=== PATIENT | male | born 1965 | race Caucasian/White ===

== ENCOUNTER 2020-05-29 14:02 | Emergency (ER) | payer MEDICAID, SELFPAY ==
[2020-05-29 14:03] VITALS: BP 129/77; PULSE 77; RESP 16; TEMP 36.6; O2SAT 96; BMI 31.0
--- NOTE | 2020-05-29 14:11 | CT_ITS ---
PROCEDURE: CT ABDOMEN PELVIS WO CON CLINICAL INDICATION: Nephrolithiasis Hematuria COMPARISON: No exams were available for comparison TECHNIQUE: Axial images obtained with sagittal and coronal reformats. All CT scans at the facility use one or more dose reduction, viz: automated exposure control, ma/kV adjustment per patient size (including targeted exams where dose is matched to indication, i.e. head), or iterative reconstruction technique. FINDINGS: LOWER THORAX: Mild atelectatic change or scarring in the left lung base. Coronary artery calcifications. ABDOMEN & PELVIS: The liver, gallbladder, spleen, adrenal glands, and pancreas have an unremarkable unenhanced appearance. No renal or ureteral calculi. No hydronephrosis. There is mild prominence of the left adrenal gland but maintains an adrenal form shape. Moderate amount of retained colonic feces. No evidence of appendicitis, intestinal obstruction, free air, or diverticulitis. There is a small umbilical hernia containing fat. There are mild degenerative changes in the thoracic spine and lumbar spine. No acute bony findings. IMPRESSION: 1. No acute finding. 2. Moderate amount of retained colonic feces. 3. No renal or ureteral calculi. 4. Minimal prominence of the left adrenal gland nonspecific which may be due to hyperplasia or adenomatous involvement. Follow-up may confirm stability. This Dictated by: Deacon Salamanca MD 05/30/2020 07:42 Deacon Salamanca MD in [facility] 05/30/2020 07:42
--- NOTE | 2020-05-29 14:13 | HMH.EDGENADL ---
ED Disposition Clinical Impression: Nephrolithiasis Hematuria Qualifiers: Hematuria type: unspecified type Qualified Code(s): R31.9 - Hematuria, unspecified Disposition: Home, Self-Care Condition on Discharge: Fair Referrals: Thong Hinds MD [Primary Care Provider] - - Critical Care Critical Care Time: No Attestation: On 05/29/20, the high probability of a clinically significant, sudden or life threatening deterioration of the following system(s) required my full and direct attention, intervention and personal management. The time I documented below is in addition to time spent performing reported procedures but includes the following listed in this critical care notation. Medical Decision Making - Alden Inquiry Pt receiving controlled substance: No Vital Signs: 05/29/20 14:03 05/29/20 15:00 05/29/20 15:30 Temperature 97.9 F Temperature Source Oral Pulse Rate 62 65 Pulse Rate [Right Radial] 77 Respiratory Rate 16 Blood Pressure 114/77 109/68 L Blood Pressure [Right Arm] 129/77 Blood Pressure Mean 85 77 Blood Pressure Mean [Right Arm] 94 Blood Pressure Source [Right Arm] Automatic Cuff Blood Pressure Position [Right Arm] Sitting 02 Sat by Pulse Oximetry 96 95 93 L Oxygen Delivery Method Room Air - Lab Data Lab Results 05/29/20 14:23: WBC 5.2, RBC 5.53, Hgb 15.4, Hct 46.3, MCV 83.8, MCH 27.8, MCHC 33.2, RDW 14.1, Plt Count 209, MPV 8.5, Neut % (Auto) 56.2, Lymph % (Auto) 32.8, [place] % (Auto) 7.3, Eos % (Auto) 3.4, Baso % (Auto) 0.4, Neut # (Auto) 2.9, Lymph # (Auto) 1.7, [place] # (Auto) 0.4, Eos # (Auto) 0.2, Baso # (Auto) 0.0 05/29/20 14:23: Sodium 140, Potassium 4.2, Chloride 106, Carbon Dioxide 26, Anion Gap 12.2, BUN 16, Creatinine 0.90, Estimated Creat Clear 126, Estimated GFR 89, Est GFR ( Amer) 107, Glucose 103 H, Calcium 9.3, Total Bilirubin 0.2, AST 22, ALT 23, Alkaline Phosphatase 77, Total Protein 7.2, Albumin 4.6, Globulin 2.6, Albumin/Globulin Ratio 1.8 05/29/20 16:00: Urine Color Yellow, Urine Appearance Clear, Urine pH 6.0, Ur Specific [place] 1.020, Urine Protein Negative, Urine Glucose (UA) Negative, Urine Ketones Negative, Urine Blood Negative, Urine Nitrate Negative, Urine Bilirubin Negative, Urine Urobilinogen 0.2, Ur Leukocyte Esterase Negative, Urine RBC Occasional, Urine WBC None, Ur Squamous Epith Cells Occasional, Urine Bacteria None Result diagrams: 05/29/20 14:23 05/29/20 14:23 Orders (Tests/Meds): ED MEDICATIONS Discontinued Medications Generic Name Dose Route Start Last Admin Trade Name Freq PRN Reason Stop Dose Admin Sodium Chloride 1,000 mls @ 999 mls/hr 05/29/20 14:15 05/29/20 14:46 Sod Chlor 0.9% 1000ml Bag IV 05/29/20 15:15 999 mls/hr .Q1H1M KYM Administration Ketorolac Tromethamine 30 mg 05/29/20 14:12 05/29/20 14:45 Ketorolac 30mg/Ml Vial IV 05/29/20 14:13 30 mg ONCE ONE Administration ORDERS Category Date Time Status CT abdomen pelvis wo con Stat Cat Scan 05/29/20 14:11 Taken Medical Decision Narrative: Upon presentation, patient is hemodynamically stable and nontoxic-appearing. Patient presents with 1 day of hematuria. Differential diagnosis includes was not limited to nephrolithiasis, hemorrhagic cystitis, bladder cancer. Labs including CBC, CMP were obtained to evaluate for infection and creatinine function. UA was ordered along with a CT abdomen pelvis without contrast evaluation of UTI and nephrolithiasis. I reviewed patient's labs which were within normal limits. Patient's creatinine is normal, unlikely to have a significant obstruction. I reviewed patient's CT which did not demonstrate any signs of an acute retained kidney stone. CT and also stated that there was no signs of hydronephrosis, hydroureter, but did demonstrate some prominence of the left adrenal gland which will require follow-up. Additionally, there is some feces in the colon without signs of bowel thickening or bowel o
[2020-05-29 14:32] LABS: Basophils % 0.4 % (0.1-2.0); Eosinophils # 0.2 K/mm3 (0.0-0.4); Eosinophils % 3.4 % (0.1-12.0); Hematocrit 46.3 % (42.0-52.0); Hemoglobin 15.4 g/dL (14.1-18.0); Lymphocytes # 1.7 K/mm3 (0.7-4.5); Lymphocytes % 32.8 % (10-50); Mean Corpuscular HGB Conc 33.2 g/dL (31.8-35.4); Mean Corpuscular Hemoglobin 27.8 pg (27.0-31.2); Mean Corpuscular Volume 83.8 fl (80-94); Mean Platelet Volume 8.5 fl (7.4-10.4); Monocytes # 0.4 K/mm3 (0.1-1.0); Monocytes % 7.3 % (1.7-9.3); Neutrophils # 2.9 K/mm3 (1.8-7.8); Neutrophils % 56.2 % (37.0-80.0); Platelet Count 209 K/mm3 (142-424); Red Blood Count 5.53 M/mm3 (4.60-6.20); Red Cell Distribution Width 14.1 % (11.5-17.5); White Blood Count 5.2 K/mm3 (4.8-10.8)
--- NOTE | 2020-05-29 14:34 | PC.NURSE ---
Pt returned from rad.
[2020-05-29 14:39] LABS: Alanine Aminotransferase 23 U/L (12-78); Albumin Level 4.6 g/dl (3.5-5.0); Albumin/Globulin Ratio 1.8 (1.1-1.8); Alkaline Phosphatase 77 U/L (38-126); Anion Gap 12.2 mEq/L (5-15); Aspartate Amino Transferase 22 U/L (17-59); Bilirubin,Total 0.2 mg/dl (0.2-1.3); Blood Urea Nitrogen 16 mg/dl (9-20); Calcium 9.3 mg/dl (8.4-10.2); Carbon Dioxide 26 mmol/L (22.0-30.0); Chloride 106 mmol/L (98-107); Creatinine Clearance Estimated 126 mL/min (50-200); Estimated Glomerular Filt Rate 89 ml/min (>60); GFR (African American) 107 ML/MIN (>60); Globulin 2.6 g/dL (1.3-3.2); Glucose 103 mg/dl (74-100); Potassium 4.2 mmoL/L (3.5-5.1); Sodium 140 mmol/L (136-145); Total Protein,Serum 7.2 g/dl (6.3-8.2)
--- NOTE | 2020-05-29 14:52 | PC.NURSE ---
pt reports unable to void at this time
[2020-05-29 15:00] VITALS: BP 114/77; PULSE 62; O2SAT 95
[2020-05-29 15:30] VITALS: BP 109/68; PULSE 65; O2SAT 93
[2020-05-29 16:07] LABS: Appearance,Urine CLEAR (Clear); Bilirubin,Urine Negative (Negative); Blood, Urine Negative (Negative); Color,Urine YELLOW (Yellow); Glucose,Urine (UA) Negative (Negative); Ketones,Urine Negative (Negative); Leukocyte Esterase,Urine Negative (Negative); Microscopic, Urine URINE MICROSCOPIC (MICROSCOPIC); Nitrate,Urine Negative (Negative); Protein,Urine Negative (Negative); Urobilinogen,Urine 0.2 EU/dl (0.2)
--- NOTE | 2020-05-29 16:10 | PC.NURSE ---
pT HAS REMOVED HIS VS MONITORS AND KEEPS GOING BACK AND FORTH TO THE RESTROOM.
[2020-05-29 16:18] LABS: RBC,Urine Occasional #/hpf (0-3); Squamous Epithelial Cell,Urine Occasional #/hpf (0-5)
--- NOTE | 2020-05-29 16:38 | PC.NURSE ---
notified staff at the [facility] pt is ready for discharge.
[2020-05-29 17:23] VITALS: BP 134/76; PULSE 87; RESP 16; TEMP 36.7; O2SAT 99
== END 2020-05-29 17:20 | disposition home or self-care (01) ==
PROVIDERS: Emergency Provider Emergency Medicine; PCP Emergency Medicine
DX: N20.0 Calculus of kidney (principal); I25.10 Atherosclerotic heart disease of native coronary artery without angina pectoris; Z86.73 Personal history of transient ischemic attack (TIA), and cerebral infarction without residual deficits; I10 Essential (primary) hypertension; I25.2 Old myocardial infarction; N28.9 Disorder of kidney and ureter, unspecified; Z96.642 Presence of left artificial hip joint; F17.210 Nicotine dependence, cigarettes, uncomplicated; Z79.899 Other long term (current) drug therapy
CPT/HCPCS: 74176; 80053; 81001; 85025; 99282

== ENCOUNTER 2020-06-09 11:17 | Emergency (ER) | payer OTHER, SELFPAY ==
--- NOTE | 2020-06-09 11:14 | ECG_ITS ---
APPROVED REPORT Exam: Resting ECG HR:58 bpm ECG Measurements Heart Rate 58 AXES SD 148 P 36 QRSd 92 QRS 11 QT 434 T 41 QTc 426 Conclusion Sinus bradycardia Minimal voltage criteria for LVH, may be normal variant Septal infarct, age undetermined Abnormal ECG Electronically signed by : Osvaldo Joseph, 06/10/2020 15:09:03
[2020-06-09 11:18] VITALS: BP 156/92; PULSE 63; RESP 16; TEMP 36.6; O2SAT 98; BMI 31.6
--- NOTE | 2020-06-09 11:21 | CT_ITS ---
PROCEDURE: CT HEAD/BRAIN WO CON CLINICAL INDICATION: weakness COMPARISON: No exams were available for comparison TECHNIQUE: Axial images obtained. All CT scans at the facility use one or more dose reduction, viz: automated exposure control, ma/kV adjustment per patient size (including targeted exams where dose is matched to indication, i.e. head), or iterative reconstruction technique. FINDINGS: Encephalomalacia is noted in the right frontoparietal lobe, likely secondary to prior infarct. No acute intra or extra-axial hemorrhage, space occupying lesion or acute infarct is noted. Few scattered periventricular and subcortical white matter hypodensities, may represent microvascular changes. Atherosclerotic vascular calcification of the bilateral internal carotid arteries are noted. No midline shift, mass effect, intracranial hemorrhage, hydrocephalus, or extra-axial fluid collection is evident. The calvarium has an unremarkable appearance. Minor mucosal thickening of the ethmoidal sinuses. Rest of the visualized paranasal sinuses and mastoid air cells are clear. IMPRESSION: No acute intracranial process. 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 Microvascular changes and atherosclerotic disease. Dictated by: Ella Newman 06/09/2020 12:47 Ella Newman in [facility] 06/09/2020 12:47
--- NOTE | 2020-06-09 11:21 | XR_ITS ---
PROCEDURE: XR CHEST PORTABLE CLINICAL HISTORY: cough COMPARISON: No exams were available for comparison FINDINGS: The cardiomediastinal silhouette and pulmonary vascularity are within normal limits. Subsegmental atelectasis noted in the left mid and bilateral lower zones. No lobar consolidation, pleural effusions or pneumothorax. Degenerative changes of the visualized thoracic spine and bilateral shoulder joints. IMPRESSION: No acute cardiopulmonary process. Dictated by: Ella Newman 06/10/2020 08:13 Ella Newman in [facility] 06/10/2020 08:13
--- NOTE | 2020-06-09 11:32 | HMH.EDWEAK ---
ED Disposition Clinical Impression: Generalized weakness Disposition: Home, Self-Care Condition on Discharge: Good Instructions: DI for Muscle Weakness Referrals: PCP,No [Primary Care Provider] - Thong Hinds MD [Staff Physician] - - Critical Care Critical Care Time: No Attestation: On , the high probability of a clinically significant, sudden or life threatening deterioration of the following system(s) required my full and direct attention, intervention and personal management. The time I documented below is in addition to time spent performing reported procedures but includes the following listed in this critical care notation. Medical Decision Making - Medical Records Medical records reviewed: Yes: I reviewed the patient's medical records. - Alden Inquiry Pt receiving controlled substance: No Vital Signs: 06/09/20 11:18 06/09/20 13:31 Temperature 98 F Temperature Source Oral Pulse Rate 56 L Pulse Rate [Radial] 63 Respiratory Rate 16 15 Blood Pressure 129/76 Blood Pressure [Right Arm] 156/92 H Blood Pressure Mean 93 Blood Pressure Mean [Right Arm] 113 Blood Pressure Position [Right Arm] Sitting 02 Sat by Pulse Oximetry 98 98 Oxygen Delivery Method Room Air - Lab Data Lab Results 06/09/20 11:22: WBC 5.5, RBC 5.47, Hgb 14.9, Hct 47.4, MCV 86.7, MCH 27.3, MCHC 31.5 L, RDW 14.5, Plt Count 175, MPV 7.5, Neut % (Auto) 65.3, Lymph % (Auto) 23.2, [place] % (Auto) 7.1, Eos % (Auto) 3.6, Baso % (Auto) 0.8, Neut # (Auto) 3.6, Lymph # (Auto) 1.3, [place] # (Auto) 0.4, Eos # (Auto) 0.2, Baso # (Auto) 0.0 06/09/20 11:22: Sodium 140, Potassium 4.2, Chloride 108 H, Carbon Dioxide 29, Anion Gap 7.2, BUN 16, Creatinine 1.00, Estimated Creat Clear 115, Estimated GFR 78, Est GFR ( Amer) 95, Glucose 94, Calcium 9.3, Total Bilirubin 0.4, AST 23, ALT 24, Alkaline Phosphatase 72, Troponin I < 0.01, Total Protein 6.7, Albumin 4.4, Globulin 2.3, Albumin/Globulin Ratio 1.9 H, TSH 1.41 06/09/20 12:18: PT 11.2, INR 0.95, APTT 27.9 06/09/20 12:22: Urine Color Yellow, Urine Appearance Clear, Urine pH 7.0, Ur Specific [place] 1.015, Urine Protein Negative, Urine Glucose (UA) Negative, Urine Ketones Negative, Urine Blood Negative, Urine Nitrate Negative, Urine Bilirubin Negative, Urine Urobilinogen 0.2, Ur Leukocyte Esterase Negative, Urine RBC None, Urine WBC 3-5, Ur Squamous Epith Cells Occasional, Urine Bacteria None Result diagrams: 06/09/20 11:22 06/09/20 11:22 Orders (Tests/Meds): ORDERS Category Date Time Status XR chest portable Stat Exams 06/09/20 11:21 Taken Troponin I Q3H Lab 06/09/20 14:30 Ordered Troponin I Q3H Lab 06/09/20 17:30 Ordered - Radiology Data #1 Image(s): Chest Image Reviewed: Yes I reviewed the patient's radiology results, Yes I reviewed the patient's radiology image Preliminary Findings: Normal/NAD - CT Data CT Scan: Head Time Received: 13:[address] Reviewed: Yes: I have reviewed the patient's CT results, I have viewed the radiologist's interpretation Findings Narrative: IMPRESSION: No acute intracranial process. 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 Microvascular changes and atherosclerotic disease. - ECG Data Tracing #1 Bradycardic rate of 58 bpm, normal FL and QTc interval. Nonspecific ST changes. ECG initial impression date: 06/09/20 ECG initial impression time: 11:15 Arrhythmias present: sinus rudolph - Reevaluation(s) Time: 13:46 Reevaluation #1: On reevaluation, patient is feeling much better. Repeat neurologic exam does not show any change from baseline. His speech is clear and normal. Patient is to follow-up with PCP. Given strict return precautions. Verbalized understanding. Medical Decision Narrative: 54-year-old male presented to the emergency department with some weakness and slurred speech. The patient slurred speech appears to have resolved. He has no new focal weakness, j
[2020-06-09 11:38] LABS: Basophils % 0.8 % (0.1-2.0); Eosinophils # 0.2 K/mm3 (0.0-0.4); Eosinophils % 3.6 % (0.1-12.0); Hematocrit 47.4 % (42.0-52.0); Hemoglobin 14.9 g/dL (14.1-18.0); Lymphocytes # 1.3 K/mm3 (0.7-4.5); Lymphocytes % 23.2 % (10-50); Mean Corpuscular HGB Conc 31.5 g/dL (31.8-35.4); Mean Corpuscular Hemoglobin 27.3 pg (27.0-31.2); Mean Corpuscular Volume 86.7 fl (80-94); Mean Platelet Volume 7.5 fl (7.4-10.4); Monocytes # 0.4 K/mm3 (0.1-1.0); Monocytes % 7.1 % (1.7-9.3); Neutrophils # 3.6 K/mm3 (1.8-7.8); Neutrophils % 65.3 % (37.0-80.0); Platelet Count 175 K/mm3 (142-424); Red Blood Count 5.47 M/mm3 (4.60-6.20); Red Cell Distribution Width 14.5 % (11.5-17.5); White Blood Count 5.5 K/mm3 (4.8-10.8)
[2020-06-09 11:43] LABS: Chloride 108 mmol/L (98-107)
[2020-06-09 11:44] LABS: Potassium 4.2 mmoL/L (3.5-5.1); Sodium 140 mmol/L (136-145)
[2020-06-09 11:46] LABS: Alanine Aminotransferase 24 U/L (12-78); Alkaline Phosphatase 72 U/L (38-126); Aspartate Amino Transferase 23 U/L (17-59); Bilirubin,Total 0.4 mg/dl (0.2-1.3); Blood Urea Nitrogen 16 mg/dl (9-20); Creatinine Clearance Estimated 115 mL/min (50-200); Estimated Glomerular Filt Rate 78 ml/min (>60); GFR (African American) 95 ML/MIN (>60)
[2020-06-09 11:47] LABS: Albumin Level 4.4 g/dl (3.5-5.0); Albumin/Globulin Ratio 1.9 (1.1-1.8); Anion Gap 7.2 mEq/L (5-15); Calcium 9.3 mg/dl (8.4-10.2); Carbon Dioxide 29 mmol/L (22.0-30.0); Globulin 2.3 g/dL (1.3-3.2); Glucose 94 mg/dl (74-100); Total Protein,Serum 6.7 g/dl (6.3-8.2)
[2020-06-09 12:00] LABS: Troponin I < 0.01 ng/ml (0.00-0.034)
[2020-06-09 12:18] LABS: Thyroid Stimulating Hormone 1.41 uIU/mL (0.465-4.68)
[2020-06-09 12:31] LABS: Microscopic, Urine URINE MICROSCOPIC (MICROSCOPIC)
[2020-06-09 12:34] LABS: Appearance,Urine CLEAR (Clear); Bilirubin,Urine Negative (Negative); Blood, Urine Negative (Negative); Color,Urine YELLOW (Yellow); Glucose,Urine (UA) Negative (Negative); Ketones,Urine Negative (Negative); Leukocyte Esterase,Urine Negative (Negative); Nitrate,Urine Negative (Negative); Protein,Urine Negative (Negative); Specific Gravity, Urine 1.015 (1.005-1.030); Urobilinogen,Urine 0.2 EU/dl (0.2)
[2020-06-09 12:45] LABS: Squamous Epithelial Cell,Urine Occasional #/hpf (0-5)
[2020-06-09 12:53] LABS: Activated Partial Thrombo Time 27.9 seconds (22.8-30.6); INR 0.95 (0.9-1.1); Prothrombin Time 11.2 seconds (10.1-12.5)
[2020-06-09 13:31] VITALS: BP 129/76; PULSE 56; RESP 15; O2SAT 98
--- NOTE | 2020-06-09 13:49 | PC.NURSE ---
GAVE REPORT TO JORGE, NURSE AT [facility]. JORGE STATED, I WILL SEND SOMEONE TO COME GET HIM. WILL CONTINUE TO MONITOR PATIENT
--- NOTE | 2020-06-09 13:55 | PC.NURSE ---
PT UP AMBULATORY TO BATHROOM
[2020-06-09 14:19] VITALS: BP 156/71; PULSE 76; RESP 17; TEMP 36.7; O2SAT 98
== END 2020-06-09 14:17 | disposition home or self-care (01) ==
PROVIDERS: Emergency Provider Emergency Medicine
DX: R53.81 Other malaise (principal); Z86.73 Personal history of transient ischemic attack (TIA), and cerebral infarction without residual deficits; I10 Essential (primary) hypertension; I25.2 Old myocardial infarction; N28.9 Disorder of kidney and ureter, unspecified; Z79.899 Other long term (current) drug therapy
CPT/HCPCS: 70450; 71045; 80053; 81001; 84443; 84484; 85025; 85610; 85730; 93005; 99283

== ENCOUNTER 2020-08-17 18:07 | Inpatient (IN) | payer OTHER, SELFPAY ==
[2020-08-17] VITALS (12 sets, daily range): BP systolic 145–197; BP diastolic 94–123; PULSE 71–90; RESP 13–25; TEMP 36.6; O2SAT 94–100; BMI 30.4
--- NOTE | 2020-08-17 17:58 | ECG_ITS ---
APPROVED REPORT Exam: Resting ECG HR:77 bpm ECG Measurements Heart Rate 77 AXES UT 140 P 26 QRSd 98 QRS 22 QT 376 T 49 QTc 425 Conclusion Normal sinus rhythm Minimal voltage criteria for LVH, may be normal variant Nonspecific T wave abnormality Abnormal ECG Electronically signed by : Osvaldo Joseph, 08/20/2020 11:03:05
--- NOTE | 2020-08-17 18:22 | XR_ITS ---
PROCEDURE INFORMATION: Exam: XR Chest Exam date and time: 08/17/2020 6:22 PM Age: 55 years old Clinical indication: Other: Chest pain; Prior surgery; Surgery date: 6+ months; Surgery type: Cardiac stents placed. TECHNIQUE: Imaging protocol: XR of the chest. Views: 2 views. COMPARISON: CR XR CHEST PORTABLE 06/09/2020 11:34 AM FINDINGS: Airway: The airways are patent. Lungs: Low lung volumes causes crowding of the bronchovascular structures. No acute interstitial or airspace disease. Pleural spaces: There are no pleural effusions present. There is no evidence of pneumothorax. Heart/Mediastinum: The heart is mildly enlarged. Bones/joints: No acute skeletal abnormality or aggressive osseous lesion. IMPRESSION: Negative for acute thoracic pathology.
--- NOTE | 2020-08-17 18:42 | HMH.EDGENADL ---
ED Disposition Condition on Discharge: Good - Critical Care Critical Care Time: No <Eric Hamilton - Last Filed: 08/17/20 20:13> <Thong Hinds - Last Filed: 08/17/20 21:28> Clinical Impression: Non-STEMI (non-ST elevated myocardial infarction) Chest pain Qualifiers: Chest pain type: unspecified Qualified Code(s): R07.9 - Chest pain, unspecified Hypertension Qualifiers: Hypertension type: essential hypertension Qualified Code(s): I10 - Essential (primary) hypertension Disposition: Admitted As Inpatient Referrals: Provider,Referral, MD [Primary Care Provider] - Attestation: On 08/17/20, the high probability of a clinically significant, sudden or life threatening deterioration of the following system(s) required my full and direct attention, intervention and personal management. The time I documented below is in addition to time spent performing reported procedures but includes the following listed in this critical care notation. Medical Decision Making - Ald[place] Inquiry Pt receiving controlled substance: No - Lab Data Result diagrams: 08/17/20 19:50 08/17/20 19:50 <Eric Hamilton - Last Filed: 08/17/20 20:13> - Medical Records Medical records reviewed: Yes: I reviewed the patient's medical records. - Lab Data Lab results reviewed: Yes: I reviewed the patient's lab results. Result diagrams: 08/17/20 19:50 08/17/20 19:50 - Radiology Data #1 Image(s): Chest Image Reviewed: Yes I reviewed the patient's radiology image Preliminary Findings: Normal/NAD - CT Data CT Scan: Chest Time Received: 21:[address] Reviewed: Yes: I have viewed the radiologist's interpretation Preliminary Findings: Abnormal (no pul emboli) - ECG Data Tracing #2 Normal Sinus Rhythm: Yes Ischemic changes: non-specific ST-T wave changes ECG compared to prior tracings: there are no significant changes - Physician Consults Physician Consulted: yaa Reason -: Pt condition - RANDY Score for Non-Stemi Age of Patient: 50-59 years old Heart Rate: 70-89 bpm Systolic Blood Pressure: 160-199 mmHg Serum Creatinine: 0.80-1.19 mg/dl CHF [place] Class: I-No CHF Other Risk Factors: Elevated Cardiac Enzymes or Biomarkers Non-Stemi Risk Score: 81 <Thong Hinds - Last Filed: 08/17/20 21:28> Vital Signs: 08/17/20 18:07 08/17/20 19:51 08/17/20 19:58 Temperature 97.8 F Temperature Source Oral Pulse Rate 74 86 Pulse Rate [Left Radial] 80 Respiratory Rate 18 15 25 H Blood Pressure 174/106 H 182/117 H Blood Pressure [Right Arm] 176/102 H Blood Pressure Mean [Right Arm] 126 Blood Pressure Source [Right Arm] Automatic Cuff Blood Pressure Position [Right Arm] Sitting 02 Sat by Pulse Oximetry 100 97 98 Oxygen Delivery Method Room Air 08/17/20 20:53 08/17/20 21:05 Temperature Temperature Source Pulse Rate 76 71 Pulse Rate [Left Radial] Respiratory Rate 14 14 Blood Pressure 186/121 H 193/116 H Blood Pressure [Right Arm] Blood Pressure Mean [Right Arm] Blood Pressure Source [Right Arm] Blood Pressure Position [Right Arm] 02 Sat by Pulse Oximetry 97 99 Oxygen Delivery Method - Lab Data Lab Results 08/17/20 19:50: WBC 6.9, RBC 5.75, Hgb 16.5, Hct 49.3, MCV 85.8, MCH 28.7, MCHC 33.4, RDW 13.9, Plt Count 206, MPV 7.5, Neut % (Auto) 61.0, Lymph % (Auto) 27.6, [place] % (Auto) 6.5, Eos % (Auto) 4.5, Baso % (Auto) 0.5, Neut # (Auto) 4.2, Lymph # (Auto) 1.9, [place] # (Auto) 0.4, Eos # (Auto) 0.3, Baso # (Auto) 0.0 08/17/20 19:50: Troponin I 2.76 H 08/17/20 19:50: Sodium 140, Potassium 4.1, Chloride 104, Carbon Dioxide 29, Anion Gap 11.1, BUN 17, Creatinine 1.00, Estimated Creat Clear 110, Estimated GFR 78, Est GFR ( Amer) 95, Glucose 93, Calcium 9.0 Orders (Tests/Meds): ED MEDICATIONS Discontinued Medications Generic Name Dose Route Start Last Admin Trade Name Freq PRN Reason Stop Dose Admin Aspirin 324 mg 08/17/20 20:40 08/17/20 20:41 Aspiri
--- NOTE | 2020-08-17 18:59 | CT_ITS ---
PROCEDURE INFORMATION: Exam: CTA Chest With Contrast Exam date and time: 08/17/2020 6:59 PM Age: 55 years old Clinical indication: Right-sided; Prior surgery; Surgery date: 6+ months; Surgery type: Multiple cardiac stents. ; Patient HX: Right sided chest pain for 2 days, cardiac stents, current smoker. ; Additional info: Pleuritic chest pain TECHNIQUE: Imaging protocol: Computed tomographic angiography of the chest with contrast. 3D rendering (Not supervised by radiologist): MIP and/or 3D reconstructed images were created by the technologist. Radiation optimization: All CT scans at this facility use at least one of these dose optimization techniques: automated exposure control; mA and/or kV adjustment per patient size (includes targeted exams where dose is matched to clinical indication); or iterative reconstruction. Contrast material: ISOVUE 370; Contrast volume: 70 ml; Contrast route: INTRAVENOUS (IV); COMPARISON: CR XR CHEST 2V 08/17/2020 6:22 PM FINDINGS: Pulmonary arteries: Bolus timing is insufficient for definitive exclusion of small peripheral pulmonary emboli. No large pulmonary emboli noted within the main pulmonary arteries or proximal segmental branches. Distal segmental branches are not confidently evaluated due to suboptimal contrast bolus. Aorta: The aorta is normal. There is a bovine aortic arch, with a common origin of the left common carotid and brachiocephalic arteries. Lungs: There is subpleural atelectasis of the dependent portions of the lungs. Focal paraseptal emphysema noted in the left upper lobe. Linear scarring in the left lower lobe. Pleural spaces: Unremarkable. No pneumothorax. No pleural effusion. Heart: There is mild atherosclerotic calcification of the coronary arteries. Coronary artery stents are appreciated. The heart is mildly enlarged. No pericardial thickening or effusion. Mediastinal space: A small hiatal hernia is present. Lymph nodes: Unremarkable. No enlarged lymph nodes. Bones/joints: Multilevel old/healed anterior right rib fractures. Multilevel old/healed left rib fractures are likewise appreciated. No acute skeletal pathology. Moderate multilevel degenerative changes of the spine, as manifested by multilevel anterior osteophytes and multilevel decrease in intervertebral disc space. Soft tissues: Unremarkable. Other findings: The visualized intra-abdominal structures demonstrate no acute findings. IMPRESSION: 1. No large pulmonary emboli noted within the main pulmonary arteries or proximal segmental branches. Distal segmental branches are not confidently evaluated due to suboptimal contrast bolus. 2. No other acute thoracic pathology is otherwise appreciated. 3. Incidental findings as detailed above.
--- NOTE | 2020-08-17 19:10 | PC.NURSE ---
PT needs a CTA, current IV in placed in the hand, radiology needs it ac and above, another nurse is attempting to obtain this. Will contact radiology when this is completed
--- NOTE | 2020-08-17 19:51 | PC.NURSE ---
Iv obtained at this time by this RN in right AC 20g. Blood obtained and sent to lab
[2020-08-17 19:59] LABS: Basophils % 0.5 % (0.1-2.0); Eosinophils # 0.3 K/mm3 (0.0-0.4); Eosinophils % 4.5 % (0.1-12.0); Hematocrit 49.3 % (42.0-52.0); Hemoglobin 16.5 g/dL (14.1-18.0); Lymphocytes # 1.9 K/mm3 (0.7-4.5); Lymphocytes % 27.6 % (10-50); Mean Corpuscular HGB Conc 33.4 g/dL (31.8-35.4); Mean Corpuscular Hemoglobin 28.7 pg (27.0-31.2); Mean Corpuscular Volume 85.8 fl (80-94); Mean Platelet Volume 7.5 fl (7.4-10.4); Monocytes # 0.4 K/mm3 (0.1-1.0); Monocytes % 6.5 % (1.7-9.3); Neutrophils # 4.2 K/mm3 (1.8-7.8); Platelet Count 206 K/mm3 (142-424); Red Blood Count 5.75 M/mm3 (4.60-6.20); Red Cell Distribution Width 13.9 % (11.5-17.5); White Blood Count 6.9 K/mm3 (4.8-10.8)
[2020-08-17 20:06] LABS: Anion Gap 11.1 mEq/L (5-15); Blood Urea Nitrogen 17 mg/dl (9-20); Carbon Dioxide 29 mmol/L (22.0-30.0); Chloride 104 mmol/L (98-107); Creatinine Clearance Estimated 110 mL/min (50-200); Estimated Glomerular Filt Rate 78 ml/min (>60); GFR (African American) 95 ML/MIN (>60); Glucose 93 mg/dl (74-100); Potassium 4.1 mmoL/L (3.5-5.1); Sodium 140 mmol/L (136-145)
--- NOTE | 2020-08-17 20:21 | PC.NURSE ---
pt going to CT
[2020-08-17 20:30] LABS: Troponin I 2.76 ng/ml (0.00-0.034)
--- NOTE | 2020-08-17 20:38 | PC.NURSE ---
notified md grey critical trop
--- NOTE | 2020-08-17 20:38 | PC.NURSE ---
pt returned from ct
--- NOTE | 2020-08-17 20:52 | ECG_ITS ---
APPROVED REPORT Exam: Resting ECG HR:74 bpm ECG Measurements Heart Rate 74 AXES LA 146 P 53 QRSd 106 QRS 11 QT 394 T 85 QTc 437 Conclusion Normal sinus rhythm Left ventricular hypertrophy with repolarization abnormality Abnormal ECG Electronically signed by : Osvaldo Joseph, 08/20/2020 11:02:08
--- NOTE | 2020-08-17 21:18 | PC.NURSE ---
Lizet speaking with Lucy at this time.
--- NOTE | 2020-08-17 21:24 | PC.NURSE ---
Per Dr. Ayala, pt is OK to have breakfast in am, then be NPO
--- NOTE | 2020-08-17 21:36 | PC.NURSE ---
Pt assisted to the BR
[2020-08-17 22:34] LABS: Troponin I 3.65 ng/ml (0.00-0.034)
--- NOTE | 2020-08-17 22:34 | PC.NURSE ---
Trop reported to MD at this time of 3.65. No new orders
[2020-08-18] VITALS (30 sets, daily range): BP systolic 138–200; BP diastolic 72–140; PULSE 74–100; RESP 16–22; TEMP 36.5–36.9; O2SAT 94–99; BMI 35.3
--- NOTE | 2020-08-18 | IR_ITS ---
APPROVED REPORT Patient Location: Inpatient [employer] Operator: DEAN Reaves RT (R) PROCEDURES Left heart catheterization Left ventriculogram Selective coronary angiogram Drug-eluting stent deployment to the proximal and mid LAD in a contiguous manner Drug-eluting stent deployment to the proximal and mid circumflex artery in a contiguous manner Drug-eluting stent deployment to the ramus intermedius INDICATION Acute non-ST elevation myocardial infarction, Coronary artery disease Informed consent was obtained prior to the procedure. COMPLICATIONS None Estimated Blood Loss: less than 10ml TECHNIQUE One percent lidocaine used to anesthetize the right anterior aspect of the wrist. The right radial artery was accessed via the Seldinger technique. A 6 Cam[place]onian sheath was placed in the right radial artery. 2.5 mg of verapamil, 800 mcg of nitroglycerin, 1mg Lidocaine and 5000 U Heparin were given through the arterial sheath. The [place] catheter was used to perform left heart catheterization left ventriculogram and selective coronary angiogram. A JL 3 6 [place]onian guide catheter was placed in the left main artery after therapeutic heparin was administered giving a therapeutic ACT. Choice PT extra-support wire was placed into the LAD and a 3.5 x 38 mm resolute [place] stent was deployed in the proximal to mid LAD at 24 kvng. Excellent angiographic results were obtained. Following this a 4 mm x 20 mm balloon was deployed at 20 kvng to post dilate the proximal to midportion of the stent. After achieving excellent angiographic results there was attempt to revascularize the circumflex artery however the catheter had to be exchanged for an EBU 3.75 guide catheter to provide better support. A Choice PT wire was placed distally and a 2.5 mm balloon was used to predilate the stenosis. Following this a 3.5 x 38 mm resolute [place] stent was deployed at 14 kvng reducing the critical stenosis to 0%. A 4 mm x 15 mm balloon was then placed in the proximal portion of the stent deployed at 20 kvng to post dilate. The wire was pulled back and placed into the ramus intermedius where a 2.5 mm x 15 mm resolute [place] stent was deployed at 20 kvng to reduce this critical stenosis. After achieving ROSY-3 flow down the LAD circumflex artery and ramus intermedius there was subtotal occlusion of a large septal training specialist. Multiple wires and attempts were made to try to cannulate and open the subtotal occluded septal training specialist however despite prolonged and numerous attempts the wire would not traverse the occlusion. ROSY II flow was present in the circumflex artery at the beginning of the procedure with ROSY-3 flow at the end of the procedure. ROSY II flow was present down the LAD at the beginning of the procedure and ROSY-3 flow at the end of the procedure. After achieving excellent angiographic results the apparatus was removed the sheath was removed good hemostasis was achieved using TR banding patient was transferred to the postop holding area in stable condition ANGIOGRAPHIC RESULTS The left main artery Normal The left anterior descending artery Has proximal 90% stenosis with a long tubular 70 to 80% stenosis The circumflex artery Circumflex artery is nondominant yet still a large vessel and has proximal 80 to 90% stenosis with greater than 90% stenosis in a large obtuse marginal artery. A large ramus intermedius has proximal 90% stenosis The right coronary artery Is a large dominant vessel and has proximal 20% mid vessel 30 to 40% stenosis with 30 and 40% stenoses throughout a large posterior descending artery and posterior lateral branch. The CARDOSO ventriculogram reveals Preserved at 60% The left ventricular end-diastolic pressure 15 to
--- NOTE | 2020-08-18 01:02 | PC.NURSE ---
pt arrived to floor via w/c from ed w/staff at 0100
--- NOTE | 2020-08-18 01:05 | PC.NURSE ---
pt unable to verify medications and when they were last taken at this time
[2020-08-18 01:20] LABS: Troponin I 4.92 ng/ml (0.00-0.034)
--- NOTE | 2020-08-18 05:59 | PC.NURSE ---
pt is AxOx4 and pleasant, complained of headache one time this shift and was treated per MAY, systolic BP 154-165, NSR on telemetry strips, remains on room air, voiding without difficulty
[2020-08-18 07:10] LABS: Chloride 107 mmol/L (98-107); Potassium 4.5 mmoL/L (3.5-5.1); Sodium 137 mmol/L (136-145)
[2020-08-18 07:13] LABS: Anion Gap 11.5 mEq/L (5-15); Blood Urea Nitrogen 16 mg/dl (9-20); Calcium 8.8 mg/dl (8.4-10.2); Carbon Dioxide 23 mmol/L (22.0-30.0); Cholesterol 164 mg/dl (140-200); Creatinine Clearance Estimated 142 mL/min (50-200); Estimated Glomerular Filt Rate 88 ml/min (>60); GFR (African American) 107 ML/MIN (>60); Glucose 75 mg/dl (74-100); Triglycerides 350 mg/dl (30-150); VLDL Cholesterol 70 mg/dL (0-40)
[2020-08-18 07:14] LABS: Chol/HDL Ratio 3.6 (1-3.5); HDL Cholesterol 46 mg/dl (40-60); Magnesium 1.7 mg/dl (1.6-2.3)
[2020-08-18 07:38] LABS: Direct LDL Cholesterol < 30.00 mg/dL (100-129)
--- NOTE | 2020-08-18 07:42 | P.CONPHA_ITS ---
[facility] Pharmacy VTE Monitoring - Patient Demographics Admission date: 08/18/20 Report Date: 08/18/20 Time: 07:42 Allergies/Adverse Reactions: Patient Allergies trazodone Allergy (Verified 08/18/20 01:03) Height: 1.73 m Weight: 105.829 kg Patient Problems: Current Active Problems Chest pain (Acute) Non-STEMI (non-ST elevated myocardial infarction) (Acute) Hypertension (Acute) - VTE Risk Labs: VTE Related Lab Results Hgb 16.5 g/dL (14.1-18.0) 08/17/20 19:50 Hct 49.3 % (42.0-52.0) 08/17/20 19:50 Plt Count 206 K/mm3 (142-424) 08/17/20 19:50 BUN 16 mg/dl (9-20) 08/18/20 06:20 Creatinine 0.90 mg/dl (0.66-1.25) 08/18/20 06:20 Estimated Creat Clear 142 mL/min (50-200) 08/18/20 06:20 Was VTE Risk Assessment Performed: Yes VTE Score: 1 VTE Risk Level: Very Low Risk Clinical Trial Participant: No - Prophylaxis VTE Prophylaxis Ordered?: Yes Types of VTE Prophylaxis: TEDS Knee High
[2020-08-18 08:26] LABS: Basophils % 0.2 % (0.1-2.0); Eosinophils # 0.2 K/mm3 (0.0-0.4); Eosinophils % 1.9 % (0.1-12.0); Hematocrit 45.8 % (42.0-52.0); Hemoglobin 15.5 g/dL (14.1-18.0); Lymphocytes # 1.2 K/mm3 (0.7-4.5); Lymphocytes % 12.4 % (10-50); Mean Corpuscular HGB Conc 33.8 g/dL (31.8-35.4); Mean Corpuscular Hemoglobin 28.6 pg (27.0-31.2); Mean Corpuscular Volume 84.8 fl (80-94); Mean Platelet Volume 7.8 fl (7.4-10.4); Monocytes # 0.5 K/mm3 (0.1-1.0); Monocytes % 5.8 % (1.7-9.3); Neutrophils # 7.4 K/mm3 (1.8-7.8); Neutrophils % 79.7 % (37.0-80.0); Platelet Count 198 K/mm3 (142-424); Red Cell Distribution Width 13.9 % (11.5-17.5); White Blood Count 9.3 K/mm3 (4.8-10.8)
--- NOTE | 2020-08-18 08:50 | HMH.CNCARD ---
History of Present Illness Consult date: 08/18/20 Requesting physician: Thong Hinds Consult reason: chest pain Chief complaint: chest pain History of present illness: This is a 55-year-old white gentleman who was admitted to the hospital with chest pain. The patient was found to have a non-ST elevation myocardial infarction. His T-max is 4.92. The patient states that he started having chest pain approximately 2 days ago. He states that this is a tight, pressure and sharp sensation in the substernal aspect of his chest. He states that it is radiating to his back, neck and right arm. The patient states that this has just progressively worsened over the last 2 days. At its worst it is an 8 out of 10 in intensity. It is worse with exertion and nothing is really helping to improve the chest pain. He states that this is associated with shortness of breath, nausea and diaphoresis. He states episodes can last for several hours before they resolve but then they just recur. He states that he does not feel well right now and he is very diaphoretic and having lots of chest tightness and shortness of breath while in the room speaking to him. He denies any fever, chills, vomiting, diarrhea, PND or orthopnea. He does report having history of coronary artery disease with stents placed a few years ago. [facility] History I have reviewed the patient's past medical history: Yes Medical History: Reports:: Atherosclerotic Heart Disease, Coronary Artery Disease, Cerebrovascular Accident (residual left sided weakness), Hyperlipidemia, Hypertension, Myocardial Infarction, Renal Disease, Renal Insufficiency *Have you ever received a pneumonia vaccine?: Yes *Have you received a flu vaccine this season?: Yes Laterality Cases: Left: Total Knee Replacement, Partial Knee Replacement Other Surgeries: Yes: Cardiac Catheterization, Coronary Stent (x4 or x5) - *Social History Last grade of school completed: High school graduate Smoking Status: Current every day smoker Tobacco Type: cigarettes # Packs/Day (cigarettes): 1 Alcohol Intake: never *Occupational Status:: disabled Housing: assisted living facility *Travel in the last 8 weeks: None Family Hx:: Cancer, Coronary Artery Disease, Diabetes, Heart Attack, Hypertension, Kidney Disease, Thyroid Disorder Meds Home Medications Medication Instructions Recorded Confirmed Type ARIPiprazole [Abilify] 5 mg PO DAILY 06/09/20 08/18/20 History Atorvastatin Calcium [Lipitor 80mg 80 mg PO HS 06/09/20 08/18/20 History Tablet*] Dicyclomine HCl 20 mg PO TID 06/09/20 08/18/20 History Duloxetine HCl [Cymbalta] 30 mg PO BID 06/09/20 08/18/20 History Famotidine [Acid Controller] 20 mg PO BID 06/09/20 08/18/20 History Hydralazine HCl [Hydralazine HCl 100 mg PO TID 06/09/20 08/18/20 History 25mg Tablet] Losartan Potassium [Cozaar 100mg 100 mg PO DAILY 06/09/20 08/18/20 History Tablets] Melatonin 5 mg PO HS 06/09/20 08/18/20 History Montelukast Sodium 10 mg PO HS 06/09/20 08/18/20 History Ropinirole HCl 4 mg PO HS 06/09/20 08/18/20 History Tamsulosin HCl 0.4 mg PO DAILY 06/09/20 08/18/20 History Tiotropium [place] [Spiriva 18 mcg IH DAILY 06/09/20 08/18/20 History Respimat] Tizanidine HCl [Tizanidine HCl 2 mg PO BID 06/09/20 08/18/20 History 2mg] carBAMazepine [Carbamazepine ER] 200 mg PO BID 06/09/20 08/18/20 History carvediloL [Carvedilol 25mg Tab] 12.5 mg PO BID 06/09/20 08/18/20 History polyethylene glycoL 3350 [Miralax 17 gm PO DAILY 06/09/20 08/18/20 History Powder] oxycodone-acetaminophen 5 mg-325 1 tab PO Q4H PRN #120 tab 07/28/20 08/18/20 Rx mg tablet Aspirin [Aspirin 81mg chewable 81 mg PO DAILY 08/18/20 08/18/20 History tab] Ergocalciferol (Vitamin D2) 50,000 unit PO WEEKLY 08/18/20 08/18/20 History [Vitamin D2] Gabapentin [Gabapentin 400mg Cap] 400 mg PO QID 08/18/20 08/18/20 History Lactobacillus Acidophilus/Pect 1 each PO BID 08/18/20 08/18/20 History [Acidophilus-Pectin Tab Chew]
--- NOTE | 2020-08-18 09:22 | HMH.HP ---
*Admission Date: 08/18/20 *Chief complaint: chest pain *History of present illness: 55-year-old male who states that he has had chest pain for 2 days that goes into his back. Patient states that he started having chest pain approximately 2 days ago. Patient states that this is a tight, pressure and sharp sensation in the substernal aspect of his chest. He states that it is radiating to his back, neck and right arm. The patient states that this has just progressively worsened over the last 2 days this is associated with shortness of breath, nausea and diaphoresis. He states episodes can last for several hours before they resolve but then they just recur. He states he is having chest pain that is radiating into his back. He does report having history of coronary artery disease with stents placed a few years ago. Patient states he is a smoker 1 03/12 ppd. Patient admitted for cardiac work up and cardiology consult. [facility] History I have reviewed the patient's past medical history: Yes Medical History: Reports:: Atherosclerotic Heart Disease, Coronary Artery Disease, Cerebrovascular Accident (residual left sided weakness), Hyperlipidemia, Hypertension, Myocardial Infarction, Renal Disease, Renal Insufficiency *Have you ever received a pneumonia vaccine?: Yes *Have you received a flu vaccine this season?: Yes Laterality Cases: Left: Total Knee Replacement, Partial Knee Replacement Other Surgeries: Yes: Cardiac Catheterization, Coronary Stent (x4 or x5) - *Social History Last grade of school completed: High school graduate Smoking Status: Current every day smoker Tobacco Type: cigarettes # Packs/Day (cigarettes): 1 Alcohol Intake: never *Occupational Status:: disabled Housing: assisted living facility *Travel in the last 8 weeks: None Family Hx:: Cancer, Coronary Artery Disease, Diabetes, Heart Attack, Hypertension, Kidney Disease, Thyroid Disorder Review of Systems - Review of Systems Review of systems:: pertinent systems reviewed and negative unless documented below - Constitutional Denies body ache(s), Denies fatigue, Denies lack of energy - Eyes Denies blurry vision - ENT Denies bleeding gums, Denies nasal discharge - *Cardiovascular Reports chest pain, Reports chest pain at rest, Reports chest pain with activity, Reports shortness of breath, Reports shortness of breath with activity - *Respiratory Denies change in phlegm color - *Gastrointestinal Reports nausea, Denies abdominal pain, Denies vomiting - *Genitourinary Denies urinary frequency - *Musculoskeletal Denies joint pain - Integumentary/Breasts Denies rash - *Neurologic Denies dizziness - Psychiatric Denies lack of enjoyment - Endocrine Denies flushing - Hematologic/Lymphatic Denies enlarged lymph nodes - Allergic/Immunologic Denies lip swelling Meds Home Medications Medication Instructions Recorded Confirmed Type ARIPiprazole [Abilify] 5 mg PO DAILY 06/09/20 08/18/20 History Atorvastatin Calcium [Lipitor 80mg 80 mg PO HS 06/09/20 08/18/20 History Tablet*] Dicyclomine HCl 20 mg PO TID 06/09/20 08/18/20 History Duloxetine HCl [Cymbalta] 30 mg PO BID 06/09/20 08/18/20 History Famotidine [Acid Controller] 20 mg PO BID 06/09/20 08/18/20 History Hydralazine HCl [Hydralazine HCl 100 mg PO TID 06/09/20 08/18/20 History 25mg Tablet] Losartan Potassium [Cozaar 100mg 100 mg PO DAILY 06/09/20 08/18/20 History Tablets] Melatonin 5 mg PO HS 06/09/20 08/18/20 History Montelukast Sodium 10 mg PO HS 06/09/20 08/18/20 History Ropinirole HCl 4 mg PO HS 06/09/20 08/18/20 History Tamsulosin HCl 0.4 mg PO DAILY 06/09/20 08/18/20 History Tiotropium [place] [Spiriva 18 mcg IH DAILY 06/09/20 08/18/20 History Respimat] Tizanidine HCl [Tizanidine HCl 2 mg PO BID 06/09/20 08/18/20 History 2mg] carBAMazepine [Carbamazepine ER] 200 mg PO BID 06/09/20 08/18/20 History carvediloL [Carvedilol 25mg Tab] 12.5 mg PO BID 06/09/20 08/18/20 History poly
--- NOTE | 2020-08-18 13:15 | HMH.PHAINT ---
verified home medication list using assisted MAR
[2020-08-18 16:10] LABS: CATHL Activated Clotting Time > 400 SEC (74-125)
[2020-08-18 16:10] LABS: CATHL Activated Clotting Time > 400 SEC (74-125)
--- NOTE | 2020-08-18 17:46 | PC.NURSE ---
Pt has been pleasant and cooperative this shift. A&O X4. Pt is post heart-catheterization and has had several complaints of pain. Morphine has been given per MAR with favorable results. Pt is on room air with sats. >90%. Lungs CTA. 1+ pitting edema noted to BLE. RT wrist cath dressing is C/D/I. Telemetry reveals NSR. Pt ambulates with stand-by assistance and the use of a cane. Pt has sat up in the recliner for a few hours today. Pt uses the urinal to void clear, yellow urine without issue. No BM. 20 G peripheral IV in the RT forearm is patent and SL. B/P elevated for most of the shift, MD aware. Other VSS. Call light within reach. Will continue to monitor.
[2020-08-19] VITALS: BP 144/83; PULSE 80; PULSE 88; RESP 18; TEMP 37; O2SAT 96
[2020-08-19 03:20] VITALS: BP 141/82; PULSE 82; RESP 18; TEMP 36.9; O2SAT 94
[2020-08-19 04:00] VITALS: PULSE 65
[2020-08-19 05:00] VITALS: BMI 35.3
--- NOTE | 2020-08-19 05:38 | PC.NURSE ---
Pt has slept at intervals this shift. Has c/o discomfort to back, neck and legs. Denies any CP. Pain medication requested often this shift. DSG to (R) radial cath site is C/D/I. No drainage noted. VSS. Medications administered per may. No other concerns at this time. Will continue to monitor.
[2020-08-19 07:08] LABS: Chloride 103 mmol/L (98-107); Potassium 3.7 mmoL/L (3.5-5.1); Sodium 137 mmol/L (136-145)
[2020-08-19 07:11] LABS: Anion Gap 9.7 mEq/L (5-15); Blood Urea Nitrogen 16 mg/dl (9-20); Carbon Dioxide 28 mmol/L (22.0-30.0); Creatinine Clearance Estimated 142 mL/min (50-200); Estimated Glomerular Filt Rate 88 ml/min (>60); GFR (African American) 107 ML/MIN (>60)
[2020-08-19 07:11] LABS: Basophils % 0.2 % (0.1-2.0); Eosinophils # 0.1 K/mm3 (0.0-0.4); Eosinophils % 1.3 % (0.1-12.0); Hematocrit 44.3 % (42.0-52.0); Hemoglobin 14.7 g/dL (14.1-18.0); Lymphocytes # 1.5 K/mm3 (0.7-4.5); Lymphocytes % 16.3 % (10-50); Mean Corpuscular HGB Conc 33.1 g/dL (31.8-35.4); Mean Corpuscular Hemoglobin 28.7 pg (27.0-31.2); Mean Corpuscular Volume 86.7 fl (80-94); Mean Platelet Volume 7.4 fl (7.4-10.4); Monocytes # 0.7 K/mm3 (0.1-1.0); Monocytes % 7.3 % (1.7-9.3); Neutrophils % 74.9 % (37.0-80.0); Platelet Count 175 K/mm3 (142-424); Red Cell Distribution Width 13.9 % (11.5-17.5); White Blood Count 9.3 K/mm3 (4.8-10.8)
[2020-08-19 07:12] LABS: Glucose 113 mg/dl (74-100)
[2020-08-19 08:00] VITALS: BP 158/96; PULSE 74; PULSE 80; RESP 18; TEMP 36.7; O2SAT 96
--- NOTE | 2020-08-19 08:38 | HMH.PNCARD ---
Subjective Date: 08/19/20 Time: 08:38 Principal diagnosis: Angina pectoris, non-ST elevation TX Interval history: 55-year-old white male in bedside chair in no acute distress but is noted to be diaphoretic. Patient states he has not had any of his chronic pain medicine yesterday and is having lots of back and knee pain. His chest pain has completely resolved after left heart catheterization with three-vessel stenting yesterday. Results noted below ANGIOGRAPHIC RESULTS The left main artery Normal The left anterior descending artery Has proximal 90% stenosis with a long tubular 70 to 80% stenosis The circumflex artery Circumflex artery is nondominant yet still a large vessel and has proximal 80 to 90% stenosis with greater than 90% stenosis in a large obtuse marginal artery. A large ramus intermedius has proximal 90% stenosis The right coronary artery Is a large dominant vessel and has proximal 20% mid vessel 30 to 40% stenosis with 30 and 40% stenoses throughout a large posterior descending artery and posterior lateral branch. The CARDOSO ventriculogram reveals Preserved at 60% The left ventricular end-diastolic pressure 15 to 20 mmHg IMPRESSION Critical three-vessel coronary disease as described above Preserved ejection fraction Borderline elevated LVEDP Successful stenting of the proximal to mid LAD severe to critical disease reduced to 0% with 1 drug-eluting stent Successful stenting of the proximal to mid circumflex artery critical disease reduced to 0% with 1 drug-eluting stent Successful stenting of the proximal ramus intermedius critical disease reduced to 0% with 1 drug-eluting stent PLAN 1. Plavix 75 mg daily plus aspirin 81 mg daily 2. Better control of hypertension 3. High dose of carvedilol and SHARDA inhibitors prior to discharge home 4. Avoidance of tobacco products 5. Risk factor modification 6. Cardiac rehabilitation Electronically signed by : Scott Ayala, 08/18/2020 12:11:25 Exam Vital signs and Labs for Last 24 Hours: Temp Pulse Resp BP Pulse Ox 98.1 F 74 18 158/96 H 96 08/19/20 08:00 08/19/20 08:00 08/19/20 08:00 08/19/20 08:00 08/19/20 08:00 Laboratory Results - last 24 hr 08/18/20 10:00: Activated Clotting Time > 400 H* 08/18/20 11:05: Activated Clotting Time > 400 H* 08/19/20 06:24: WBC 9.3, RBC 5.10, Hgb 14.7, Hct 44.3, MCV 86.7, MCH 28.7, MCHC 33.1, RDW 13.9, Plt Count 175, MPV 7.4, Neut % (Auto) 74.9, Lymph % (Auto) 16.3, Walton % (Auto) 7.3, Eos % (Auto) 1.3, Baso % (Auto) 0.2, Neut # (Auto) 7.0, Lymph # (Auto) 1.5, Walton # (Auto) 0.7, Eos # (Auto) 0.1, Baso # (Auto) 0.0 08/19/20 06:26: Sodium 137, Potassium 3.7, Chloride 103, Carbon Dioxide 28 D, Anion Gap 9.7, BUN 16, Creatinine 0.90, Estimated Creat Clear 142, Estimated GFR 88, Est GFR ( Amer) 107, Glucose 113 H, Calcium 9.0 I & O for Last 24 hours: Intake & Output 08/16/20 08/17/20 08/18/20 08/19/20 11:59 11:59 11:59 11:59 Intake Total 0 / 0 960 / 960 Output Total 200 / 200 1300 / 1300 Balance -200 / -200 -340 / -340 Weight 233 lb 5.008 oz 233 lb 5.008 oz - Constitutional no acute distress - *Routine HEENT Exam Head: Present: normocephalic Eye: Present: EOMI, PERRL ENT: Present: mucous membranes moist - *Routine Neck Exam Present: supple. Absent: lymphadenopathy - *Routine Respiratory Exam Present: CTA bilaterally - *Routine Cardiovascular Exam Present: RRR - *Routine Abdominal Exam Present: soft, normoactive bowel sounds. Absent: tenderness - *Routine Extremities Exam Absent: cyanosis, clubbing, edema - *Routine Skin Exam Present: warm. Absent: rash - *Routine Neurological Exam Present: alert, oriented X3 Progress Note: A&P (1) Non-STEMI (non-ST elevated myocardial infarction) Status: Acute (2) Unstable angina Status: Acute (3) Coronary artery disease Status: Chronic (4) History of coronary artery stent placement Status: Chronic (5) Hyperli
--- NOTE | 2020-08-19 08:57 | HMH.DCSUM ---
General - General Admission date:: 08/18/20 Discharge date: 08/19/20 HPI HPI: 55-year-old male who states that he has had chest pain for 2 days that goes into his back. Patient states that he started having chest pain approximately 2 days ago. Patient states that this is a tight, pressure and sharp sensation in the substernal aspect of his chest. He states that it is radiating to his back, neck and right arm. The patient states that this has just progressively worsened over the last 2 days this is associated with shortness of breath, nausea and diaphoresis. He states episodes can last for several hours before they resolve but then they just recur. He states he is having chest pain that is radiating into his back. He does report having history of coronary artery disease with stents placed a few years ago. Patient states he is a smoker 1 1/ ppd. Patient admitted for cardiac work up and cardiology consult. Hospital Course Hospital Course: Laboratory Tests 08/17/20 08/17/20 08/17/20 19:50 19:50 19:50 WBC 6.9 RBC 5.75 Hgb 16.5 Hct 49.3 MCV 85.8 MCH 28.7 MCHC 33.4 RDW 13.9 Plt Count 206 MPV 7.5 Neut % (Auto) 61.0 Lymph % (Auto) 27.6 Harper % (Auto) 6.5 Eos % (Auto) 4.5 Baso % (Auto) 0.5 Neut # (Auto) 4.2 Lymph # (Auto) 1.9 Harper # (Auto) 0.4 Eos # (Auto) 0.3 Baso # (Auto) 0.0 Activated Clotting Time Sodium 140 Potassium 4.1 Chloride 104 Carbon Dioxide 29 Anion Gap 11.1 BUN 17 Creatinine 1.00 Estimated Creat Clear 110 Estimated GFR 78 Est GFR ( Amer) 95 Glucose 93 Calcium 9.0 Magnesium Troponin I 2.76 H Triglycerides Cholesterol LDL Cholesterol Direct VLDL Cholesterol HDL Cholesterol Cholesterol/HDL Ratio 08/17/20 08/18/20 08/18/20 21:51 00:26 06:20 WBC RBC Hgb Hct MCV MCH MCHC RDW Plt Count MPV Neut % (Auto) Lymph % (Auto) Harper % (Auto) Eos % (Auto) Baso % (Auto) Neut # (Auto) Lymph # (Auto) Harper # (Auto) Eos # (Auto) Baso # (Auto) Activated Clotting Time Sodium 137 Potassium 4.5 Chloride 107 Carbon Dioxide 23 D Anion Gap 11.5 BUN 16 Creatinine 0.90 Estimated Creat Clear 142 Estimated GFR 88 Est GFR ( Amer) 107 Glucose 75 Calcium 8.8 Magnesium 1.7 Troponin I 3.65 H 4.92 H Triglycerides 350 H Cholesterol 164 LDL Cholesterol Direct < 30.00 L VLDL Cholesterol 70 H HDL Cholesterol 46 Cholesterol/HDL Ratio 3.6 H 08/18/20 08/18/20 08/18/20 08:10 10:00 11:05 WBC 9.3 D RBC 5.40 Hgb 15.5 Hct 45.8 MCV 84.8 MCH 28.6 MCHC 33.8 RDW 13.9 Plt Count 198 MPV 7.8 Neut % (Auto) 79.7 Lymph % (Auto) 12.4 Harper % (Auto) 5.8 Eos % (Auto) 1.9 Baso % (Auto) 0.2 Neut # (Auto) 7.4 Lymph # (Auto) 1.2 Harper # (Auto) 0.5 Eos # (Auto) 0.2 Baso # (Auto) 0.0 Activated Clotting Time > 400 H* > 400 H* Sodium Potassium Chloride Carbon Dioxide Anion Gap BUN Creatinine Estimated Creat Clear Estimated GFR Est GFR ( Amer) Glucose Calcium Magnesium Troponin I Triglycerides Cholesterol LDL Cholesterol Direct VLDL Cholesterol HDL Cholesterol Cholesterol/HDL Ratio 08/19/20 08/19/20 06:24 06:26 WBC 9.3 RBC 5.10 Hgb 14.7 Hct 44.3 MCV 86.7 MCH 28.7 MCHC 33.1 RDW 13.9 Plt Count 175 MPV 7.4 Neut % (Auto) 74.9 Lymph % (Auto) 16.3 Harper % (Auto) 7.3 Eos % (Auto) 1.3 Baso % (Auto) 0.2 Neut # (Auto) 7.0 Lymph # (Auto) 1.5 Harper # (Auto) 0.7 Eos # (Auto) 0.1 Baso # (Auto) 0.0 Activated Clotting Time Sodium 137 Potassium 3.7 Chloride 103 Carbon Dioxide 28 D Anion Gap 9.7 BUN 16 Creatinine 0.90 Estimated Creat Clear 142 Estima
--- NOTE | 2020-08-19 09:36 | SW/DCPLANNER ---
Addendum entered by Susie Muro 08/19/20 12:13: I have arranged [facility] [employer] for this patient. ID# [id number] Original Note: This patient currently resides at [facility]. I have informed Everton/Lauren that this patient will be stable for discharge today. PT/OT evaluation is pending. Everton has asked that if home health is needed it be set up through [facility]. I will continue to follow up with Everton/Lauren.
--- NOTE | 2020-08-19 10:14 | HMH.PHACLD ---
Tirso Spangler has received discharge medication counseling on the following medications: PATIENT DISCHARGED ON ASPIRIN 81 MG DAILY, CARVEDILOL 25 MG BID, CLOPIDOGREL 75 MG DAILY, IRBESARTAN 150 MG DAILY AND ATORVASTATIN 80 MG HS.
--- NOTE | 2020-08-19 10:23 | HMH.OTEV ---
OT Inpatient Evaluation Rehab OT IP Evaluation Start: 08/19/20 08:55 Freq: ONCE Status: Complete Protocol: Document 08/19/20 10:18 MEAGHAN (Rec: 08/19/20 10:23 MEAGHAN [id number]) Rehab OT IP Assessment Subjective History *Admission Date: 08/18/20 *Chief complaint: chest pain *History of present illness: 55-year-old male who states that he has had chest pain for 2 days that goes into his back. Patient states that he started having chest pain approximately 2 days ago. Patient states that this is a tight, pressure and sharp sensation in the substernal aspect of his chest. He states that it is radiating to his back, neck and right arm. The patient states that this has just progressively worsened over the last 2 days this is associated with shortness of breath, nausea and diaphoresis. He states episodes can last for several hours before they resolve but then they just recur. He states he is having chest pain that is radiating into his back. He does report having history of coronary artery disease with stents placed a few years ago. Patient states he is a smoker 1 03/12 ppd. Patient admitted for cardiac work up and cardiology consult . [facility] History I have reviewed the patient's past medical history: Yes Medical History: Reports:: Atherosclerotic Heart Disease, Coronary Artery Disease, Cerebrovascular Accident ( residual left sided weakness), Hyperlipidemia, Hypertension, Myocardial Infarction, Renal Disease, Renal Insufficiency ANGIOGRAPHIC RESULTS T
--- NOTE | 2020-08-19 11:33 | HMH.PTEV ---
Physical Therapy Evaluation Rehab PT IP Evaluation Start: 08/19/20 08:55 Freq: ONCE Status: Active Protocol: Document 08/19/20 11:30 PHOSOILA (Rec: 08/19/20 11:33 PHORNE [id number]) Subjective/History History History 55 yowm adm to [facility] with NSTEMI now S/P heart cath with 3 stents placed. He reports he lives at personal fpc and is independent with all mobility using a cane. Subjective Subjective Pt reports feeling tired, otherwise no c/o. Rehab PT IP Eval Objective Appearance Patient Behavior Appropriate Patient Orientation Person,Place,Time Difficulty following instructions none Speech Pattern Clear Ambulation Patient Able to Ambulate Yes Ambulation Observation IP General Gait Pattern Observation Wide Based Gait Ambulation Distance (feet) 20 Ambulation Assistive Device Straight Cane Ambulation Ability Independent Balance Ability to Arise Able, w/o using arms Sitting Balance Steady, safe Standing Balance Steady, wide stance Dynamic Sitting Balance Ability Good Dynamic Standing Balance Ability Good Transfers Bed Transfer Ability Independent Chair Transfer Ability Independent Sit to Stand Bed Transfer Ability Independent Sit to Stand Chair Transfer Ability Independent Rehab PT IP prob,goals,plan Problems Date of Evaluation: 08/19/20 Discharge Plan PT Discharge Plan Pt appears to be at baseline for all mobility and has no current inpatient therapy needs. G -code Required No Eval Complexity Eval Charge Codes 08931 - Moderate Complexity PHYSICIAN CERTIFICATION: I certify the specified therapy services for Tirso Spangler are required, authorized, and reviewed every 30 days.
--- NOTE | 2020-08-19 12:10 | PC.NURSE ---
Spoke to Lauren at [place] regarding pt's discharge and medication changes. Pt is ready for discharge at this time.
== END 2020-08-19 14:45 | disposition home or self-care (01) | DRG 246 ==
LOC: ER 21:28 → 2ND 08-18 08:20
PROVIDERS: Emergency Medicine; Internal Medicine; Nurse Practitioner Family; Admitting Provider Emergency Medicine; Emergency Provider Emergency Medicine; PCP Emergency Medicine; Visit Provider Emergency Medicine
PROC: 4A023N7 Measurement of Cardiac Sampling and Pressure, Left Heart, Percutaneous Approach (ICD-10-PCS; principal; 2020-08-18 14:00)
DX: I21.4 Non-ST elevation (NSTEMI) myocardial infarction (principal); I25.10 Atherosclerotic heart disease of native coronary artery without angina pectoris; Z71.6 Tobacco abuse counseling; I10 Essential (primary) hypertension; Z20.822 Contact with and (suspected) exposure to COVID-19; F17.210 Nicotine dependence, cigarettes, uncomplicated; Z95.5 Presence of coronary angioplasty implant and graft
CPT/HCPCS: 36415; 71046; 71275; 80048; 80061; 83735; 84484; 85025; 85347; 92928; 93005; 93306; 93458; 97162; 97165; 99152; 99153; 99284; C1725; C1769; C1876; C9600; J1644; Q9967; U0003

== ENCOUNTER 2020-08-20 12:33 | Observation (INO) | payer OTHER, SELFPAY ==
[2020-08-20] VITALS (16 sets, daily range): BP systolic 95–129; BP diastolic 57–81; PULSE 69–94; RESP 12–21; TEMP 36.4–36.8; O2SAT 93–98; BMI 30.4; BMI 36.0
--- NOTE | 2020-08-20 12:29 | ECG_ITS ---
APPROVED REPORT Exam: Resting ECG HR:76 bpm ECG Measurements Heart Rate 76 AXES VA 154 P 44 QRSd 100 QRS 26 QT 388 T 83 QTc 436 Conclusion Normal sinus rhythm Cannot rule out Anterior infarct, age undetermined Abnormal ECG Electronically signed by : Osvaldo Joseph, 08/21/2020 08:16:22
--- NOTE | 2020-08-20 12:41 | XR_ITS ---
PROCEDURE INFORMATION: Exam: XR Chest Exam date and time: 08/20/2020 12:41 PM Age: 55 years old Clinical indication: Angina pectoris; Patient HX: SOA, chest and back pain; Additional info: SOB TECHNIQUE: Imaging protocol: XR of the chest. Views: 1 view. COMPARISON: CR XR CHEST 2V 08/17/2020 6:22 PM FINDINGS: Lungs: Unremarkable. No consolidation. Pleural spaces: Unremarkable. No pleural effusion. No pneumothorax. Heart/Mediastinum: Unremarkable. No cardiomegaly. Bones/joints: Unremarkable. IMPRESSION: No acute findings.
[2020-08-20 13:11] LABS: Basophils # 0.1 K/mm3 (0-0.2); Basophils % 0.6 % (0.1-2.0); Eosinophils # 0.2 K/mm3 (0.0-0.4); Eosinophils % 1.6 % (0.1-12.0); Hematocrit 44.5 % (42.0-52.0); Lymphocytes # 1.4 K/mm3 (0.7-4.5); Lymphocytes % 15.1 % (10-50); Mean Corpuscular HGB Conc 31.5 g/dL (31.8-35.4); Mean Corpuscular Hemoglobin 27.2 pg (27.0-31.2); Mean Corpuscular Volume 86.4 fl (80-94); Mean Platelet Volume 7.4 fl (7.4-10.4); Monocytes # 0.8 K/mm3 (0.1-1.0); Monocytes % 8.4 % (1.7-9.3); Neutrophils # 6.8 K/mm3 (1.8-7.8); Neutrophils % 74.3 % (37.0-80.0); Platelet Count 189 K/mm3 (142-424); Red Blood Count 5.15 M/mm3 (4.60-6.20); Red Cell Distribution Width 13.2 % (11.5-17.5); White Blood Count 9.1 K/mm3 (4.8-10.8)
[2020-08-20 13:19] LABS: Anion Gap 7.3 mEq/L (5-15); Blood Urea Nitrogen 19 mg/dl (9-20); Calcium 8.9 mg/dl (8.4-10.2); Carbon Dioxide 26 mmol/L (22.0-30.0); Chloride 107 mmol/L (98-107); Creatinine Clearance Estimated 110 mL/min (50-200); Estimated Glomerular Filt Rate 78 ml/min (>60); GFR (African American) 95 ML/MIN (>60); Glucose 89 mg/dl (74-100); Potassium 4.3 mmoL/L (3.5-5.1); Sodium 136 mmol/L (136-145)
[2020-08-20 13:23] LABS: Activated Partial Thrombo Time 27.4 seconds (22.8-30.6); Prothrombin Time 10.3 seconds (10.1-12.5)
[2020-08-20 13:26] LABS: INR 0.86 (0.9-1.1)
[2020-08-20 13:29] LABS: NT Pro Brain Natriuretic Pep. 1970 pg/mL (0-125)
--- NOTE | 2020-08-20 13:36 | PC.NURSE ---
DR BANKS INFORMED OF CRITICAL TROP.
--- NOTE | 2020-08-20 13:49 | PC.NURSE ---
Dr Ayala paged.
--- NOTE | 2020-08-20 13:49 | PC.NURSE ---
Dr Ayala paged.
--- NOTE | 2020-08-20 13:57 | HMH.EDGENADL ---
ED Disposition Clinical Impression: Atypical chest pain Disposition: Admitted As Inpatient Condition on Discharge: Good Referrals: Thong Hinds MD [Primary Care Provider] - - Critical Care Critical Care Time: No Attestation: On 08/20/20, the high probability of a clinically significant, sudden or life threatening deterioration of the following system(s) required my full and direct attention, intervention and personal management. The time I documented below is in addition to time spent performing reported procedures but includes the following listed in this critical care notation. Medical Decision Making - Medical Records Medical records reviewed: Yes: I reviewed the patient's medical records. - Alden Inquiry Pt receiving controlled substance: Yes Alden was queried for this patient: Yes Risks and benefits of using a controlled substance: were discussed with pt by me Vital Signs: 08/20/20 12:34 08/20/20 12:41 08/20/20 12:47 Temperature 98 F Temperature Source Oral Pulse Rate 77 88 Pulse Rate [Radial] 83 Respiratory Rate 20 21 12 Blood Pressure 121/77 95/57 L Blood Pressure [Right Arm] 118/67 Blood Pressure Mean [Right Arm] 84 Blood Pressure Position Blood Pressure Position [Right Arm] Sitting 02 Sat by Pulse Oximetry 95 95 94 L Oxygen Delivery Method Room Air 08/20/20 12:48 08/20/20 12:52 08/20/20 13:00 Temperature Temperature Source Pulse Rate 88 79 79 Pulse Rate [Radial] Respiratory Rate 18 Blood Pressure 95/57 L 105/65 L 108/63 L Blood Pressure [Right Arm] Blood Pressure Mean [Right Arm] Blood Pressure Position Sitting Sitting Blood Pressure Position [Right Arm] 02 Sat by Pulse Oximetry 95 Oxygen Delivery Method 08/20/20 13:10 08/20/20 13:30 Temperature Temperature Source Pulse Rate 77 74 Pulse Rate [Radial] Respiratory Rate 16 18 Blood Pressure 104/59 L 100/58 L Blood Pressure [Right Arm] Blood Pressure Mean [Right Arm] Blood Pressure Position Blood Pressure Position [Right Arm] 02 Sat by Pulse Oximetry 93 L 94 L Oxygen Delivery Method - Lab Data Lab Results 08/20/20 12:40: WBC 9.1, RBC 5.15, Hgb 14.0 L, Hct 44.5, MCV 86.4, MCH 27.2, MCHC 31.5 L, RDW 13.2, Plt Count 189, MPV 7.4, Neut % (Auto) 74.3, Lymph % (Auto) 15.1, [place] % (Auto) 8.4, Eos % (Auto) 1.6, Baso % (Auto) 0.6, Neut # (Auto) 6.8, Lymph # (Auto) 1.4, [place] # (Auto) 0.8, Eos # (Auto) 0.2, Baso # (Auto) 0.1 08/20/20 12:40: Sodium 136, Potassium 4.3, Chloride 107, Carbon Dioxide 26, Anion Gap 7.3, BUN 19, Creatinine 1.00, Estimated Creat Clear 110, Estimated GFR 78, Est GFR ( Amer) 95, Glucose 89, Calcium 8.9, Troponin I 11.40 H 08/20/20 12:40: PT 10.3, INR 0.86 L, APTT 27.4 08/20/20 12:40: NT-Pro-B Natriuret Pep 1970 H Result diagrams: 08/20/20 12:40 08/20/20 12:40 Orders (Tests/Meds): ED MEDICATIONS Generic Name Dose Route Start Last Admin Trade Name Freq PRN Reason Stop Dose Admin Sodium Chloride 1,000 mls @ 999 mls/hr 08/20/20 13:00 08/20/20 12:53 Sod Chlor 0.9% 1000ml Bag IV 08/20/20 14:00 999 mls/hr .Q1H1M KYM Administration Discontinued Medications Generic Name Dose Route Start Last Admin Trade Name Freq PRN Reason Stop Dose Admin Aspirin 243 mg 08/20/20 12:41 08/20/20 12:46 Aspirin 81mg Chewable Tablet PO 08/20/20 12:42 243 mg ONCE ONE Administration Iopamidol 75 ml 08/20/20 13:39 Iopamidol-370 (76%);100ml Bottle IV 08/20/20 13:40 ONCE ONE Morphine Sulfate 4 mg 08/20/20 12:47 08/20/20 12:55 Morphine 4mg/Ml Syringe IV 08/20/20 12:48 4 mg ONCE ONE Administration Nitroglycerin 0.4 mg 08/20/20 12:42 08/20/20 12:46 Nitroglycerin 0.4mg Sl Tablet SL 08/20/20 12:43 0.4 mg ONCE ONE Administration Ondansetron HCl 4 mg 08/20/20 12:47 08/20/20 12:55 Ondansetron 4mg/2ml Vial IV 08/20/20 12:48 4 mg ONCE ONE Administration Sodium Chloride 10 ml 08/20/20
--- NOTE | 2020-08-20 14:00 | PC.NURSE ---
Dr Lizet garza.
--- NOTE | 2020-08-20 14:02 | PC.NURSE ---
AARON FREDERICK speaking to Dr Hinds
[2020-08-20 14:06] LABS: Coronavirus 19, PCR Not Detected (NotDetected); Influenza A, PCR Not Detected (NotDetected); Influenza B, PCR Not Detected (NotDetected)
--- NOTE | 2020-08-20 14:44 | PC.NURSE ---
REPORT CALLED TO KASSY CHEW
--- NOTE | 2020-08-20 14:54 | PC.NURSE ---
Pt arrived to the floor at this time.
--- NOTE | 2020-08-20 16:43 | PC.NURSE ---
Pt has had no c/o chest pain or SOB since being up to the floor. Pt has c/o lower back and rt shoulder pain, PRN Percocet reordered per MD Olivarez. Administered per MAY w/ favorable results. No other acute changes or complaints at this time. Will continue to monitor.
[2020-08-20 19:29] LABS: Troponin I 9.89 ng/ml (0.00-0.034)
[2020-08-21] VITALS (8 sets, daily range): BP systolic 127–159; BP diastolic 80–89; PULSE 68–82; RESP 16–20; TEMP 36.7–37; O2SAT 95–97
--- NOTE | 2020-08-21 03:44 | PC.NURSE ---
shift summary pt is alert and oriented X4. lung sounds are clear with sats maintained 90% or above on room air. pt is able to ambulate to restroom unassisted. pt has complained of lower back pain twice tonight which was relieved with pain meds. pt denies chest pain, nausea, vomiting, or diarrhea. not acute changes will continue to monitor.
[2020-08-21 06:07] LABS: Basophils % 0.4 % (0.1-2.0); Eosinophils # 0.2 K/mm3 (0.0-0.4); Eosinophils % 2.6 % (0.1-12.0); Hematocrit 39.4 % (42.0-52.0); Hemoglobin 13.3 g/dL (14.1-18.0); Lymphocytes # 1.7 K/mm3 (0.7-4.5); Lymphocytes % 20.6 % (10-50); Mean Corpuscular HGB Conc 33.8 g/dL (31.8-35.4); Mean Corpuscular Hemoglobin 28.9 pg (27.0-31.2); Mean Corpuscular Volume 85.4 fl (80-94); Mean Platelet Volume 7.8 fl (7.4-10.4); Monocytes # 0.6 K/mm3 (0.1-1.0); Monocytes % 7.4 % (1.7-9.3); Neutrophils # 5.7 K/mm3 (1.8-7.8); Neutrophils % 69.1 % (37.0-80.0); Platelet Count 165 K/mm3 (142-424); Red Blood Count 4.62 M/mm3 (4.60-6.20); Red Cell Distribution Width 13.6 % (11.5-17.5); White Blood Count 8.2 K/mm3 (4.8-10.8)
[2020-08-21 06:08] LABS: Chloride 108 mmol/L (98-107); Potassium 3.9 mmoL/L (3.5-5.1); Sodium 138 mmol/L (136-145)
[2020-08-21 06:11] LABS: Anion Gap 7.9 mEq/L (5-15); Blood Urea Nitrogen 14 mg/dl (9-20); Carbon Dioxide 26 mmol/L (22.0-30.0); Creatinine Clearance Estimated 144 mL/min (50-200); Estimated Glomerular Filt Rate 88 ml/min (>60); GFR (African American) 107 ML/MIN (>60)
[2020-08-21 06:12] LABS: Calcium 8.5 mg/dl (8.4-10.2); Glucose 93 mg/dl (74-100)
--- NOTE | 2020-08-21 08:26 | HMH.PHAVTE ---
[facility] Pharmacy VTE Monitoring - Patient Demographics Admission date: 08/20/20 Report Date: 08/21/20 Time: 08:26 Allergies/Adverse Reactions: Patient Allergies trazodone Allergy (Verified 08/18/20 01:03) Height: 1.73 m Weight: 107.53 kg Patient Problems: Current Active Problems Atypical chest pain (Acute) - VTE Risk Labs: VTE Related Lab Results Hgb 13.3 g/dL (14.1-18.0) L 08/21/20 05:19 Hct 39.4 % (42.0-52.0) L 08/21/20 05:19 Plt Count 165 K/mm3 (142-424) 08/21/20 05:19 PT 10.3 seconds (10.1-12.5) 08/20/20 12:40 INR 0.86 (0.9-1.1) L 08/20/20 12:40 APTT 27.4 seconds (22.8-30.6) 08/20/20 12:40 BUN 14 mg/dl (9-20) D 08/21/20 05:19 Creatinine 0.90 mg/dl (0.66-1.25) 08/21/20 05:19 Estimated Creat Clear 144 mL/min (50-200) 08/21/20 05:19 Was VTE Risk Assessment Performed: Yes VTE Score: 3 VTE Risk Level: Low Risk - Prophylaxis VTE Prophylaxis Ordered?: Yes Types of VTE Prophylaxis: TEDS Knee High, Pharmacological Location of Applied Device: Bilateral Lower Extremeties Pharmacologic Type: Heparin
--- NOTE | 2020-08-21 08:54 | HMH.PHAINT ---
MEDICATION RECONCILIATION COMPLETED ON PATIENT USING MAR FROM INTERMEDIATE. -GERMÁN RODRIGUEZ, EVENSD
--- NOTE | 2020-08-21 09:29 | HMH.HP ---
*Admission Date: 08/20/20 *Chief complaint: chest pain *History of present illness: this patient from local [facility] presented to the ed - male presented to the emergency department with some chest discomfort and shortness of breath. The patient was recently admitted for NSTEMI and received cardiac catheterization with stent placement. Patient states that since then he has had some intermittent chest discomfort. Is located on the right side close to his back. Associated with some shortness of breath that appears to be worse with exertion. Patient did receive some nitroglycerin and appears to have helped him, however pain does return. He denies any cough or hemoptysis. He is not having any headache or change in vision. No focal weakness. Denies abdominal pain or vomiting. No diarrhea. pt was found to have marked elevated troponin and persistent chest pain despite recent stents pt was discussed with card and was admitted for treatment and eval [facility] History I have reviewed the patient's past medical history: Yes Medical History: Reports:: Atherosclerotic Heart Disease, Coronary Artery Disease, Cerebrovascular Accident (residual left sided weakness), Hyperlipidemia, Hypertension, Myocardial Infarction, Renal Disease, Renal Insufficiency Denies:: Cancer, Diabetes Mellitus Type 1, Diabetes Mellitus Type 2, MRSA *Have you ever received a pneumonia vaccine?: Yes *Have you received a flu vaccine this season?: Yes Other Surgeries: Yes: Cardiac Catheterization, Coronary Stent (x4 or x5) Amputation: No Fractures: No - *Social History Last grade of school completed: 11th or 12th Smoking Status: Current every day smoker Tobacco Type: cigarettes # Packs/Day (cigarettes): 1 Alcohol Intake: never *Occupational Status:: disabled Housing: other Household Members: other *Travel in the last 8 weeks: None Family Hx:: Unable to obtain Review of Systems - Review of Systems Review of systems:: pertinent systems reviewed and negative unless documented below - Constitutional Denies fever(s) - Eyes Denies change in vision - ENT Denies sore throat - *Cardiovascular Reports chest pain at rest, Reports shortness of breath - *Respiratory Denies cough - *Gastrointestinal Denies abdominal pain - *Genitourinary Denies difficulty urinating, Denies blood in urine - *Musculoskeletal Denies joint pain - Integumentary/Breasts Denies rash - *Neurologic Denies headache(s), Denies tingling/numbness/burning sensations, Denies seizure-like activity - Psychiatric Denies anxiety, Denies thoughts of hurting/killing yourself Meds Home Medications Medication Instructions Recorded Confirmed Type ARIPiprazole [Abilify] 5 mg PO DAILY 06/09/20 08/20/20 History Atorvastatin Calcium [Lipitor 80mg 80 mg PO DAILY 06/09/20 08/21/20 History Tablet*] Dicyclomine HCl 20 mg PO TID 06/09/20 08/20/20 History Duloxetine HCl [Cymbalta] 30 mg PO BID 06/09/20 08/20/20 History Famotidine [Acid Controller] 20 mg PO BID 06/09/20 08/20/20 History Melatonin 5 mg PO HS 06/09/20 08/20/20 History Montelukast Sodium 10 mg PO HS 06/09/20 08/20/20 History Ropinirole HCl 4 mg PO HS 06/09/20 08/20/20 History Tamsulosin HCl 0.4 mg PO DAILY 06/09/20 08/20/20 History Tiotropium [place] [Spiriva 1 puff IH DAILY 06/09/20 08/20/20 History Respimat] Tizanidine HCl [Tizanidine HCl 2 mg PO BID 06/09/20 08/20/20 History 2mg] carBAMazepine [Carbamazepine ER] 200 mg PO BID 06/09/20 08/20/20 History polyethylene glycoL 3350 [Miralax 17 gm PO DAILY 06/09/20 08/20/20 History Powder] Aspirin [Aspirin 81mg chewable 81 mg PO DAILY 08/18/20 08/20/20 History tab] Ergocalciferol (Vitamin D2) 50,000 unit PO TU 08/18/20 08/21/20 History [Vitamin D2] Lactobacillus Acidophilus/Pect 1 each PO BID 08/18/20 08/20/20 History [Acidophilus-Pectin Tab Chew] Switzer-3 Fatty Acids/Fish Oil [Fish 2 each PO DAILY 08/18/20 08/20/20 History Oil 1,000 mg Capsule] Ropini
--- NOTE | 2020-08-21 17:08 | PC.NURSE ---
Pt has requested PRN pain medication multiple times this shift, upon reassessment pt would be resting w/ eyes closed. Pt has been NSR on tele, no c/o chest pain or SOB this shift. No other acute changes or complaints at this time. Will continue to monitor.
[2020-08-22] VITALS: BP 152/71; PULSE 70; PULSE 78; RESP 18; TEMP 36.8; O2SAT 97
[2020-08-22 01:39] VITALS: RESP 18
[2020-08-22 04:00] VITALS: BP 163/80; PULSE 60; PULSE 73; RESP 17; TEMP 36.8; O2SAT 97
--- NOTE | 2020-08-22 04:19 | PC.NURSE ---
VSS. patient alert and oriented x4. patient has left sided weakness due to past TIA; assisted with ambulation as needed. pain medicine given as requested. no acute changes. will continue to monitor.
[2020-08-22 05:14] VITALS: BMI 32.1
[2020-08-22 05:42] VITALS: RESP 18
[2020-08-22 05:52] VITALS: BMI 34.2
--- NOTE | 2020-08-22 07:41 | HMH.CNCARD ---
History of Present Illness Consult date: 08/22/20 Requesting physician: Thong Hinds Consult reason: chest pain, shortness of breath Chief complaint: chest pain History of present illness: 55-year-old male presented to the ED with chest pain and worsening shortness of breath on 08/20/2020. Patient states he was recently discharged from this facility after having stent placement at this facility. Patient had been admitted with non-STEMI with stent placement to the LAD and circumflex on 08/18/2020. Patient at that time was placed on dual antiplatelet, antianginal and appropriate coronary artery disease medications. Patient states after he was discharged from the facility, he began having the midsternal chest pain mostly radiating to the right side with increased shortness of breath. Patient states that shortness of breath was becoming worse, to where he felt that he needed to return to the hospital. Patient states mild chest discomfort at this time. Patient denies shortness of breath. Patient states that the chest pain only comes with exertion. Patient does have slight swelling of the lower extremities. Patient denies cough, fever or PND. Upon this admission patient noted to have elevated troponins. EKG revealed normal sinus rhythm with possible anterior infarct, abnormal EKG with a heart rate of 76 bpm. Echocardiogram was performed on 08/18/2020. Echocardiogram revealed normal LV size and function mild thickening of the aortic valve with mild transvalvular regurgitation and EF within normal. Will obtain limited echocardiogram at this visit due to non-STEMI. Patient was noted to have elevated troponins which now are trending down. Patient does have history of CVA in which left-sided deficits are noted. Patient has history of hypertension and hyperlipidemia. Patient does smoke 1 pack/day of cigarettes. Chest x-ray was performed which revealed no acute findings. BNP was noted to be elevated at 1970. Patient does have history of COPD. Preliminary echocardiogram from this visit, reveals EF within normal. Waiting official echo results. [facility]:ANGIOGRAPHIC RESULTS (08/18/20) The left main artery Normal The left anterior descending artery Has proximal 90% stenosis with a long tubular 70 to 80% stenosis The circumflex artery Circumflex artery is nondominant yet still a large vessel and has proximal 80 to 90% stenosis with greater than 90% stenosis in a large obtuse marginal artery. A large ramus intermedius has proximal 90% stenosis The right coronary artery Is a large dominant vessel and has proximal 20% mid vessel 30 to 40% stenosis with 30 and 40% stenoses throughout a large posterior descending artery and posterior lateral branch. The CARDOSO ventriculogram reveals Preserved at 60% The left ventricular end-diastolic pressure 15 to 20 mmHg IMPRESSION (08/18/20) Critical three-vessel coronary disease as described above Preserved ejection fraction Borderline elevated LVEDP Successful stenting of the proximal to mid LAD severe to critical disease reduced to 0% with 1 drug-eluting stent Successful stenting of the proximal to mid circumflex artery critical disease reduced to 0% with 1 drug-eluting stent Successful stenting of the proximal ramus intermedius critical disease reduced to 0% with 1 drug-eluting stent Discussed with Dr. Ayala plan of care patient. Orders and recommendations received from Dr. Ayala. Due to the multiple vessel disease, patient may experience chest pain at times. I did discuss this with patient. Patient was started on isosorbide 30 mg daily due to chest pain last admission. Advised patient to take medications as prescribed. At this time, no further cardiac testing is recommended. Patient is to follow-up with cardiology in 1 week or sooner if signs and symptoms persist or develop. Advised patient to stop smoking. Thank you for allowing cardiology to participate in the care of this patient. [facility] History I
[2020-08-22 08:00] VITALS: BP 141/82; PULSE 75; PULSE 80; RESP 18; TEMP 36.9; O2SAT 97; O2SAT 98
--- NOTE | 2020-08-22 08:00 | CA_ITS ---
APPROVED REPORT EXAM: Comprehensive 2D, Doppler, and color-flow Echocardiogram Marine Service Manager: Katie Escalera, RT(R) Ht: 5 ft 9 in Wt: 226lbs BSA: 2.18 BP: 140/89 mmHg Indications: hx NSTEMI, recent cath with stents, echo 08/18/20 normal EF, back today with SOB and CP, smoker, HTN, hyperlipidemia 2D Dimensions LVEF (Mcnair's) 52.90 % M: 52 - 72 LV Volume 177.20 mL M: 62 - 150 LV Volume Index 81.65 mL/m2 M: 34 - 74 M-Mode Dimensions RVDd 2.39 cm (0.9-2.6) LVDd 5.64 cm (3.5-5.7) LVDs 4.29 cm (3.5-5.7) IVSd 1.00 cm (0.6-1.1) PWd 0.75 cm (0.6-1.1) EF (Teich) 47.10% FS 23.90% EDV (Teich) 156.20 mL ESV (Teich) 82.60 mL LV Diastology E Decel Time 167.00 (160-240 msec) E/A Ratio 1.0 MED E' 5.90 (< 7 cm/sec) E'/MED E' Ratio 15.08 (>14) LAT E' 8.10 (<10 cm/sec) E/LAT E' Ratio 10.99 (>14) Mitral Valve MV E Max Bucky. 89.00 (40-130 cm/s) MV A Velocity 89.00 (40-130 cm/s) E/A Ratio 1.00 MV Decel. Time 167.00 (160-240 ms) MV PHT 49.00 ms Left Ventricle Left atrium is mildly enlarged, left ventricle is normal size, mild concentric left ventricular hypertrophy, visually estimated ejection fraction 55% with no regional wall motion abnormality, grade 1 diastolic dysfunction seen without tissue Doppler evidence of raise left atrial pressure. Right Ventricle Right atrium and right ventricle are normal size and contractility. Aortic Valve Aortic valve is minimally thickened and fibrosed, there is no aortic stenosis or aortic insufficiency. Mitral Valve Mitral valve is grossly normal, there is trace mitral regurgitation. Tricuspid Valve Tricuspid grossly normal, there is trace tricuspid regurgitation, tricuspid regurgitation jet velocity is inadequate for calculation of the right ventricular systolic pressure. Pulmonic Valve Pulmonic valve is poorly visualized. Great Vessels Aortic root is normal size. Pericardium No significant pericardial effusion noted. Conclusion 1. Normal left ventricular size, mild concentric left ventricular hypertrophy, visually estimated ejection fraction 55% with no regional wall motion abnormality, grade 1 diastolic dysfunction seen without tissue Doppler evidence of raise left atrial pressure. 2. Trace mitral and tricuspid regurgitation. 3. No significant pericardial effusion noted. Electronically signed by : Chaz Arreola, 08/22/2020 19:55:31
[2020-08-22 09:30] LABS: Basophils % 0.4 % (0.1-2.0); Eosinophils # 0.2 K/mm3 (0.0-0.4); Eosinophils % 2.3 % (0.1-12.0); Hematocrit 40.4 % (42.0-52.0); Hemoglobin 13.7 g/dL (14.1-18.0); Lymphocytes # 1.4 K/mm3 (0.7-4.5); Lymphocytes % 19.4 % (10-50); Mean Corpuscular HGB Conc 33.8 g/dL (31.8-35.4); Mean Corpuscular Hemoglobin 28.7 pg (27.0-31.2); Mean Corpuscular Volume 84.9 fl (80-94); Mean Platelet Volume 8.2 fl (7.4-10.4); Monocytes # 0.4 K/mm3 (0.1-1.0); Monocytes % 6.1 % (1.7-9.3); Neutrophils # 5.2 K/mm3 (1.8-7.8); Neutrophils % 71.9 % (37.0-80.0); Platelet Count 184 K/mm3 (142-424); Red Blood Count 4.77 M/mm3 (4.60-6.20); Red Cell Distribution Width 13.6 % (11.5-17.5); White Blood Count 7.3 K/mm3 (4.8-10.8)
--- NOTE | 2020-08-22 09:31 | SW/DCPLANNER ---
Addendum entered by Susie Muro 08/22/20 13:37: I have arranged [facility] for this patient. I spoke with Tonja huynh/ [facility] and she stated that transportation has been lined up for this patient but she could not give me a confirmation # at this time. Mariana did assure me that [facility] will transport this patient today. Addendum entered by Susie Muro 08/22/20 11:47: Patient originally ask for a higher level of care at time of discharge. I discussed with patient that due to being independent with ambulation he does not meet qualifications for higher level of care. I also explained this to Humberto/Lauren with [facility]. I will set up transportation back to [facility] once medically stable for discharge. Dr Hinds stated that patient can discharge later today. Addendum entered by Susie Muro 08/22/20 10:11: PT/OT has stated that patient is independent and able to discharge back to [facility]. I will inform Dr Hinds/Cristino. Original Note: Patient is a readmission from [facility]. Patient will have PT/OT evaluation today. Patient will more than likely need placement at time of discharge: information has been faxed to [facility]. I will follow up with Jennie from [facility] once patient information is reviewed. I have information Everton/Lauren regarding the need for placement for this patient.
[2020-08-22 09:46] LABS: Chloride 107 mmol/L (98-107); Sodium 138 mmol/L (136-145)
[2020-08-22 09:47] LABS: Potassium 3.9 mmoL/L (3.5-5.1)
[2020-08-22 09:49] LABS: Blood Urea Nitrogen 16 mg/dl (9-20); Creatinine Clearance Estimated 138 mL/min (50-200); Estimated Glomerular Filt Rate 88 ml/min (>60); GFR (African American) 107 ML/MIN (>60)
[2020-08-22 09:50] LABS: Calcium 8.7 mg/dl (8.4-10.2); Carbon Dioxide 27 mmol/L (22.0-30.0); Glucose 99 mg/dl (74-100)
--- NOTE | 2020-08-22 09:54 | HMH.OTEV ---
OT Inpatient Evaluation Rehab OT IP Evaluation Start: 08/22/20 09:01 Freq: ONCE Status: Complete Protocol: Document 08/22/20 09:50 LUCILAGIGI (Rec: 08/22/20 09:54 MEAGHAN [id number]) Rehab OT IP Assessment Subjective History *Admission Date: 08/20/20 *Chief complaint: chest pain *History of present illness: this patient from local [facility] presented to the ed - male presented to the emergency department with some chest discomfort and shortness of breath. The patient was recently admitted for NSTEMI and received cardiac catheterization with stent placement. Patient states that since then he has had some intermittent chest discomfort. Is located on the right side close to his back. Associated with some shortness of breath that appears to be worse with exertion. Patient did receive some nitroglycerin and appears to have helped him, however pain does return. He denies any cough or hemoptysis . He is not having any headache or change in vision. No focal weakness. Denies abdominal pain or vomiting. No diarrhea. pt was found to have marked elevated troponin and persistent chest pain despite recent stents pt was discussed with card and was admitted for treatment and eval [facility] History I have reviewed the patient's past medical history: Yes Medical History: Reports:: Atherosclerotic Heart Disease, Coronary Artery Disease, Cerebrovascular Accident ( residual left sided weakness), Hyperlipidemia, Hypertension, Myocardial Infarction, Renal Disease, Renal
--- NOTE | 2020-08-22 10:06 | HMH.PTEV ---
Physical Therapy Evaluation Rehab PT IP Evaluation Start: 08/22/20 09:01 Freq: ONCE Status: Active Protocol: Document 08/22/20 10:02 OSVALDO (Rec: 08/22/20 10:06 OSVALDO [id number]) Subjective/History History History This is the initial IP PT evalaution for Tirso Crys. Pt is a 55 y/o male who lives at local [facility] who recently had NSTEMI and cardiac cath. Pt reported to the ED w/ c/o chest pain and SOA Subjective Subjective Pt reports his anxiety is what causes him to have c/o SOA Rehab PT IP Eval Objective Appearance Patient Behavior Appropriate Patient Orientation Person,Place,Time Difficulty following instructions none Speech Pattern Clear,Appropriate Ambulation Patient Able to Ambulate Yes Ambulation Observation IP General Gait Pattern Observation Ataxic Gait Ambulation Distance (feet) 50 Ambulation Assistive Device Straight Cane Ambulation Ability Supervision/Stand by,Contact Guard/Hand Hold Balance Ability to Arise Able, uses arms to help Sitting Balance Steady, safe Standing Balance Steady, wide stance Dynamic Sitting Balance Ability Good Dynamic Standing Balance Ability Fair Transfers Bed Transfer Ability Independent Chair Transfer Ability Independent Sit to Stand Bed Transfer Ability Supervision/Stand by Sit to Stand Chair Transfer Ability Supervision/Stand by Rehab PT IP prob,goals,plan Problems Date of Evaluation: 08/22/20 Rehab Potential Rehab Potential Innapropriate for Skilled Therapy Equipment Needs Assistive Devices Straight Cane Discharge Plan PT Discharge Plan Pt at baseline mobility level - pt safe to dc to personal fci once medically stable G -code Required Yes Eval Complexity Eval Charge Codes 95025 - Low Complexity G Codes PT Current Status Mobility PT Current Status Modifier CJ-At least 20% but less than 40% impaired, limited or restricted PT Goal Status Mobility PT Goal Status Modifer CJ-At least 20% but less than 40% impaired, limited or restricted PHYSICIAN CERTIFICATION: I joseline
[2020-08-22 12:00] VITALS: BP 130/76; PULSE 71; PULSE 72; RESP 18; TEMP 37; O2SAT 97
--- NOTE | 2020-08-22 12:44 | HMH.DCSUM ---
General - General Admission date:: 08/20/20 Discharge date: 08/22/20 HPI HPI: this patient from local [facility] presented to the ed - male presented to the emergency department with some chest discomfort and shortness of breath. The patient was recently admitted for NSTEMI and received cardiac catheterization with stent placement. Patient states that since then he has had some intermittent chest discomfort. Is located on the right side close to his back. Associated with some shortness of breath that appears to be worse with exertion. Patient did receive some nitroglycerin and appears to have helped him, however pain does return. He denies any cough or hemoptysis. He is not having any headache or change in vision. No focal weakness. Denies abdominal pain or vomiting. No diarrhea. pt was found to have marked elevated troponin and persistent chest pain despite recent stents pt was discussed with card and was admitted for treatment and eval Hospital Course Hospital Course: Laboratory Tests 08/20/20 08/20/20 08/20/20 12:40 12:40 12:40 WBC 9.1 RBC 5.15 Hgb 14.0 L Hct 44.5 MCV 86.4 MCH 27.2 MCHC 31.5 L RDW 13.2 Plt Count 189 MPV 7.4 Neut % (Auto) 74.3 Lymph % (Auto) 15.1 Mcintosh % (Auto) 8.4 Eos % (Auto) 1.6 Baso % (Auto) 0.6 Neut # (Auto) 6.8 Lymph # (Auto) 1.4 Mcintosh # (Auto) 0.8 Eos # (Auto) 0.2 Baso # (Auto) 0.1 PT 10.3 INR 0.86 L APTT 27.4 Sodium 136 Potassium 4.3 Chloride 107 Carbon Dioxide 26 Anion Gap 7.3 BUN 19 Creatinine 1.00 Estimated Creat Clear 110 Estimated GFR 78 Est GFR ( Amer) 95 Glucose 89 Calcium 8.9 Troponin I 11.40 H NT-Pro-B Natriuret Pep 08/20/20 08/20/20 08/20/20 12:40 16:21 18:54 WBC RBC Hgb Hct MCV MCH MCHC RDW Plt Count MPV Neut % (Auto) Lymph % (Auto) Mcintosh % (Auto) Eos % (Auto) Baso % (Auto) Neut # (Auto) Lymph # (Auto) Mcintosh # (Auto) Eos # (Auto) Baso # (Auto) PT INR APTT Sodium Potassium Chloride Carbon Dioxide Anion Gap BUN Creatinine Estimated Creat Clear Estimated GFR Est GFR ( Amer) Glucose Calcium Troponin I 10.60 H 9.89 H NT-Pro-B Natriuret Pep 1970 H 08/21/20 08/21/20 08/22/20 05:19 05:19 09:16 WBC 8.2 7.3 RBC 4.62 4.77 Hgb 13.3 L 13.7 L Hct 39.4 L 40.4 L MCV 85.4 84.9 MCH 28.9 28.7 MCHC 33.8 33.8 RDW 13.6 13.6 Plt Count 165 184 MPV 7.8 8.2 Neut % (Auto) 69.1 71.9 Lymph % (Auto) 20.6 19.4 Mcintosh % (Auto) 7.4 6.1 Eos % (Auto) 2.6 2.3 Baso % (Auto) 0.4 0.4 Neut # (Auto) 5.7 5.2 Lymph # (Auto) 1.7 1.4 Mcintosh # (Auto) 0.6 0.4 Eos # (Auto) 0.2 0.2 Baso # (Auto) 0.0 0.0 PT INR APTT Sodium 138 Potassium 3.9 Chloride 108 H Carbon Dioxide 26 Anion Gap 7.9 BUN 14 D Creatinine 0.90 Estimated Creat Clear 144 Estimated GFR 88 Est GFR ( Amer) 107 Glucose 93 Calcium 8.5 Troponin I NT-Pro-B Natriuret Pep 08/22/20 09:16 WBC RBC Hgb Hct MCV MCH MCHC RDW Plt Count MPV Neut % (Auto) Lymph % (Auto) Mcintosh % (Auto) Eos % (Auto) Baso % (Auto) Neut # (Auto) Lymph # (Auto) Mcintosh # (Auto) Eos # (Auto) Baso # (Auto) PT INR APTT Sodium 138 Potassium 3.9 Chloride 107 Carbon Dioxide 27 Anion Gap BUN 16 Creatinine 0.90 Estimated Creat Clear 138 Estimated GFR 88 Est GFR ( Amer) 107 Glucose 99 Calcium 8.7 Troponin I NT-Pro-B Natriuret Pep PROCEDURE INFORMATION: Exam: XR Chest Exam date and time: 08/20/2020 12:41 PM Age: 55 years old Clinical indication: Angina pectoris; Patient HX: SOA, chest and back pain; Additional info: SOB TECHNIQUE: Imaging protocol: XR of the chest. Views: 1 view. COMPARISON:
== END 2020-08-22 14:00 | disposition home or self-care (01) ==
LOC: ER 12:55 → 2ND 14:05
PROVIDERS: Nurse Practitioner Family; Admitting Provider Emergency Medicine; Emergency Provider Emergency Medicine; PCP Emergency Medicine; Visit Provider Emergency Medicine
DX: I21.4 Non-ST elevation (NSTEMI) myocardial infarction (principal); I25.10 Atherosclerotic heart disease of native coronary artery without angina pectoris; F17.210 Nicotine dependence, cigarettes, uncomplicated; Z95.5 Presence of coronary angioplasty implant and graft; Z79.01 Long term (current) use of anticoagulants; Z79.899 Other long term (current) drug therapy; I10 Essential (primary) hypertension; I69.354 Hemiplegia and hemiparesis following cerebral infarction affecting left non-dominant side
CPT/HCPCS: 36415; 71045; 80048; 83880; 84484; 85025; 85610; 85730; 93005; 93308; 96365; 96375; 97161; 97165; 99284; G0378; J2405; Q9967; U0003

== ENCOUNTER 2020-10-09 17:05 | Observation (INO) | payer OTHER, SELFPAY ==
[2020-10-09] VITALS (7 sets, daily range): BP systolic 126–158; BP diastolic 88–119; PULSE 60–94; RESP 16–20; TEMP 37.1–37.3; O2SAT 96–98; BMI 30.4; BMI 34.7
--- NOTE | 2020-10-09 17:16 | ECG_ITS ---
APPROVED REPORT Exam: Resting ECG HR:92 bpm ECG Measurements Heart Rate 92 AXES HI 146 P 28 QRSd 92 QRS 7 QT 360 T 46 QTc 445 Conclusion Normal sinus rhythm Previously noted poor R wave progression Abnormal ECG Electronically signed by : Osvaldo Joseph, 10/11/2020 08:31:58
--- NOTE | 2020-10-09 17:17 | XR_ITS ---
PROCEDURE INFORMATION: Exam: XR Chest Exam date and time: 10/09/2020 5:17 PM Age: 55 years old Clinical indication: Sternal or substernal pain; Prior surgery TECHNIQUE: Imaging protocol: XR of the chest. Views: 1 view. COMPARISON: CR XR CHEST PORTABLE 08/20/2020 1:03 PM FINDINGS: Lungs: Unremarkable. No consolidation. Hypoventilatory study. Pleural spaces: Unremarkable. No pleural effusion. No pneumothorax. Heart/Mediastinum: Unremarkable. No cardiomegaly. Bones/joints: Unremarkable. IMPRESSION: No acute findings.
[2020-10-09 17:52] LABS: Basophils # 0.1 K/mm3 (0-0.2); Basophils % 0.8 % (0.1-2.0); Eosinophils # 0.1 K/mm3 (0.0-0.4); Eosinophils % 1.8 % (0.1-12.0); Hematocrit 51.1 % (42.0-52.0); Hemoglobin 16.6 g/dL (14.1-18.0); Lymphocytes # 1.9 K/mm3 (0.7-4.5); Lymphocytes % 24.4 % (10-50); Mean Corpuscular HGB Conc 32.5 g/dL (31.8-35.4); Mean Corpuscular Hemoglobin 28.6 pg (27.0-31.2); Mean Corpuscular Volume 88.1 fl (80-94); Mean Platelet Volume 7.6 fl (7.4-10.4); Monocytes # 0.4 K/mm3 (0.1-1.0); Neutrophils # 5.4 K/mm3 (1.8-7.8); Neutrophils % 68.2 % (37.0-80.0); Platelet Count 162 K/mm3 (142-424); White Blood Count 7.9 K/mm3 (4.8-10.8)
--- NOTE | 2020-10-09 17:58 | HMH.EDGENADL ---
ED Disposition Clinical Impression: Chest pain Disposition: Admitted as Observation Condition on Discharge: Good Referrals: Thong Hinds MD [Primary Care Provider] - - Critical Care Critical Care Time: No Attestation: On 10/09/20, the high probability of a clinically significant, sudden or life threatening deterioration of the following system(s) required my full and direct attention, intervention and personal management. The time I documented below is in addition to time spent performing reported procedures but includes the following listed in this critical care notation. Medical Decision Making - Medical Records MR Comment: Called the timing adjuster, Dr Ayala, he advised to accept the patient nad call the hospitalist collections officer. Dr Diaz was called. - Alden Inquiry Pt receiving controlled substance: No Alden was queried for this patient: No Vital Signs: 10/09/20 17:07 10/09/20 17:30 10/09/20 17:54 Temperature 99.1 F Temperature Source Oral Pulse Rate 88 82 Pulse Rate [Radial] 90 Respiratory Rate 18 16 19 Blood Pressure 126/102 H 158/107 H Blood Pressure [Right Arm] 149/104 H Blood Pressure Mean [Right Arm] 119 Blood Pressure Position Sitting Blood Pressure Position [Right Arm] Sitting 02 Sat by Pulse Oximetry 98 98 96 Oxygen Delivery Method Room Air Room Air 10/09/20 18:10 10/09/20 18:31 Temperature Temperature Source Pulse Rate 86 85 Pulse Rate [Radial] Respiratory Rate Blood Pressure 146/88 H 155/119 H Blood Pressure [Right Arm] Blood Pressure Mean [Right Arm] Blood Pressure Position Sitting Sitting Blood Pressure Position [Right Arm] 02 Sat by Pulse Oximetry 96 Oxygen Delivery Method - Lab Data Lab Results 10/09/20 17:45: WBC 7.9, RBC 5.80, Hgb 16.6, Hct 51.1, MCV 88.1, MCH 28.6, MCHC 32.5, RDW 14.0, Plt Count 162, MPV 7.6, Neut % (Auto) 68.2, Lymph % (Auto) 24.4, Angelina % (Auto) 5.0, Eos % (Auto) 1.8, Baso % (Auto) 0.8, Neut # (Auto) 5.4, Lymph # (Auto) 1.9, Angelina # (Auto) 0.4, Eos # (Auto) 0.1, Baso # (Auto) 0.1 10/09/20 17:45: Sodium 143, Potassium 4.4, Chloride 110 H, Carbon Dioxide 21 L, Anion Gap 16.4 H, BUN 13, Creatinine 1.00, Estimated Creat Clear 110, Estimated GFR 78, Est GFR ( Amer) 95, Glucose 96, Calcium 9.6, Troponin I 0.01 Result diagrams: 10/09/20 17:45 10/09/20 17:45 Orders (Tests/Meds): ED MEDICATIONS Discontinued Medications Generic Name Dose Route Start Last Admin Trade Name Rafi PRN Reason Stop Dose Admin Aspirin 324 mg 10/09/20 17:17 10/09/20 17:58 Aspirin 81mg Chewable Tablet PO 10/09/20 17:18 324 mg ONCE ONE Administration Nitroglycerin 0.4 mg 10/09/20 17:17 10/09/20 17:55 Nitroglycerin 0.4mg Sl Tablet SL 10/09/20 17:18 0.4 mg ONCE ONE Administration Nitroglycerin 1 gm 10/09/20 18:03 10/09/20 18:08 Nitroglycerin 1 Gm Ointment TD 10/09/20 18:04 Not Given ONCE ONE Ondansetron HCl 4 mg 10/09/20 18:55 10/09/20 19:09 Ondansetron 4mg/2ml Vial IV 10/09/20 18:56 4 mg ONCE ONE Administration Oxycodone/Acetaminophen 1 each 10/09/20 18:51 10/09/20 19:08 Oxycodone 5mg W/Apap 325mg Tablet PO 10/09/20 18:52 1 each ONCE ONE Administration ORDERS Category Date Time Status Troponin I Q3H Lab 10/09/20 19:45 Received Troponin I Q3H Lab 10/09/20 23:30 Ordered General Adult HPI - General Chief complaint: Chest Pain Stated complaint: chest pain Time Seen by Provider: 10/09/20 17:58 Mode of Arrival: EMS Limitations: No Limitations Description of Symptoms (Recalled from ER Triage Doc. by RN): TO ED PER SQUAD WITH C/O CHEST PAIN RADIATING INTO BACK, +SOB, +NAUSEA, +DIAPHORESIS PT STATES PAIN WORSE WITH EXERTION. PT WAS GIVEN 1 NITRO ENROUTE WITH NO RELIEF. - History of Present Illness HPI narrative: The patient is 55 year old male, with long history of CAD, he was cleaning the room today when he had chest pain,he called EMS. they gave him NTG which
[2020-10-09 18:09] LABS: Chloride 110 mmol/L (98-107); Potassium 4.4 mmoL/L (3.5-5.1); Sodium 143 mmol/L (136-145)
[2020-10-09 18:12] LABS: Anion Gap 16.4 mEq/L (5-15); Blood Urea Nitrogen 13 mg/dl (9-20); Carbon Dioxide 21 mmol/L (22.0-30.0); Creatinine Clearance Estimated 110 mL/min (50-200); Estimated Glomerular Filt Rate 78 ml/min (>60); GFR (African American) 95 ML/MIN (>60)
[2020-10-09 18:13] LABS: Calcium 9.6 mg/dl (8.4-10.2); Glucose 96 mg/dl (74-100)
[2020-10-09 18:26] LABS: Troponin I 0.01 ng/ml (0.00-0.034)
[2020-10-09 20:17] LABS: Troponin I < 0.01 ng/ml (0.00-0.034)
[2020-10-09 20:56] LABS: Coronavirus 19, PCR Not Detected (NotDetected); Influenza A, PCR Not Detected (NotDetected); Influenza B, PCR Not Detected (NotDetected)
--- NOTE | 2020-10-09 21:47 | PC.NURSE ---
pt transferred to 2nd az via wheelchair
--- NOTE | 2020-10-09 21:49 | PC.NURSE ---
PT ARRIVED TO FLOOR VIA W/C FROM ED W/STAFF AT 120
--- NOTE | 2020-10-09 23:27 | PC.NURSE ---
corrected previously written order from morphine 2mg ivp q3mins prn to morphine 2mg q3h prn. correct admission orders to have as follows : admission, activity as tolerated. cardiac diet today. npo after MN tonight. cardiology consult tomorrow (noted md spoke with dr mon while patient in ed). cbc, cmp @ 0600. nitro sl prn. oxygen continued prn titrate > 90%; other necessary orders in t he morning per pcp upon rounding.
[2020-10-10] VITALS (7 sets, daily range): BP systolic 121–170; BP diastolic 71–84; PULSE 68–90; RESP 18; TEMP 36.6–37; O2SAT 95–98; BMI 34.7
--- NOTE | 2020-10-10 | CA_ITS ---
APPROVED REPORT Exam: Pharmacologic Technologist: Tamanna Nagy, Ht: 5 ft 8 in Wt: 229 lbs BSA: 2.17 m2 HR: 68 bpm BP: 117/74 mmHg Medical History Medications: Aspirin,,,,, Gabapentin,,,,, Atorvastatin,,,,, Coreg,,,,, Plavix,,,,, Abilify,,,,, Cymbalta,,,,, Imdur,,,,, Ranexa,,,,, Ropinirole HCI,,,,, AVapro,,,,, DicyCLOMINE HCI,,,,, Stress Test Details Test: LEXISCAN HR Resting HR: 65 bpm Max Heart Rate (APMHR): 167.525037 bpm Max HR Achieved: 101 bpm Target HR (85% APMHR): 141.232768 bpm % of APMHR: 60.48 Recovery HR: 93 bpm BP Resting BP: 117/74 mmHg Max BP: 122/81 mmHg Recovery BP: 122.0/81.0 mmHg ECG Resting ECG: NSR, NSSTT, Abnormalities Clinical Reason for Termination: Completed Protocol Exercise duration: 04:01 min Highest Stage Achieved: Exercise capacity: 1.0 METs Stress ECG Conclusion Symptom: No CP Arrythmias/Ectopy: None ST-T Changes: <1.5mm ST Segment changes conclusion: Non-diagnostic Test Summary REST . . . . . . . Resting REST 05:45 . . 65 . 117/ 74 . . Stage 1 01:00 . . 78 . . . . Stage 2 01:00 . . 100 . 102/ 66 . . Stage 3 01:00 . . 96 . 117/ 74 . . Stage 4 01:00 . . 90 . 119/ 79 . . Stage 4 01:01 . . 90 . 119/ 79 . Stop exercise at 04:01 RECOVERY 01:00 . . 98 . . . . RECOVERY 02:00 . . 86 . . . . RECOVERY 02:21 . . 94 . 122/ 81 . . Electronically signed by : Chaz Arreola, 10/10/2020 22:07:21
[2020-10-10 00:17] LABS: Troponin I < 0.01 ng/ml (0.00-0.034)
--- NOTE | 2020-10-10 05:48 | PC.NURSE ---
Nissa JARAMILLO NOTIFIED OF CONSULT
[2020-10-10 06:19] LABS: Basophils # 0.1 K/mm3 (0-0.2); Basophils % 0.7 % (0.1-2.0); Eosinophils # 0.2 K/mm3 (0.0-0.4); Eosinophils % 3.2 % (0.1-12.0); Hematocrit 48.2 % (42.0-52.0); Hemoglobin 16.1 g/dL (14.1-18.0); Lymphocytes # 2.1 K/mm3 (0.7-4.5); Lymphocytes % 26.6 % (10-50); Mean Corpuscular HGB Conc 33.4 g/dL (31.8-35.4); Mean Corpuscular Hemoglobin 28.1 pg (27.0-31.2); Mean Corpuscular Volume 84.2 fl (80-94); Mean Platelet Volume 7.5 fl (7.4-10.4); Monocytes # 0.5 K/mm3 (0.1-1.0); Monocytes % 5.9 % (1.7-9.3); Neutrophils # 4.9 K/mm3 (1.8-7.8); Neutrophils % 63.5 % (37.0-80.0); Platelet Count 178 K/mm3 (142-424); Red Blood Count 5.72 M/mm3 (4.60-6.20); Red Cell Distribution Width 14.1 % (11.5-17.5); White Blood Count 7.7 K/mm3 (4.8-10.8)
[2020-10-10 06:35] LABS: Chloride 109 mmol/L (98-107); Potassium 3.8 mmoL/L (3.5-5.1); Sodium 142 mmol/L (136-145)
[2020-10-10 06:38] LABS: Alanine Aminotransferase 33 U/L (12-78); Albumin Level 4.3 g/dl (3.5-5.0); Albumin/Globulin Ratio 1.5 (1.1-1.8); Alkaline Phosphatase 104 U/L (38-126); Anion Gap 10.8 mEq/L (5-15); Aspartate Amino Transferase 28 U/L (17-59); Bilirubin,Total 0.6 mg/dl (0.2-1.3); Blood Urea Nitrogen 15 mg/dl (9-20); Calcium 9.3 mg/dl (8.4-10.2); Carbon Dioxide 26 mmol/L (22.0-30.0); Creatinine Clearance Estimated 126 mL/min (50-200); Estimated Glomerular Filt Rate 78 ml/min (>60); GFR (African American) 95 ML/MIN (>60); Globulin 2.8 g/dL (1.3-3.2); Glucose 102 mg/dl (74-100); Total Protein,Serum 7.1 g/dl (6.3-8.2)
--- NOTE | 2020-10-10 07:04 | PC.NURSE ---
No s/s of acute distress noted since patient arrived to the floor. Bed at lowest level for safety, call light within reach; will continue to monitor.
--- NOTE | 2020-10-10 07:48 | NM_ITS ---
APPROVED REPORT Exam: Nuclear Stress Test Indication: Chest pain, SOB, Palpitations, Syncope, Fatigue, HTN, CAD, High cholesterol, Tobacco use, Family history Patient Location: Inpatient Stress Tech: Tamanna Nagy [place] Tech:Anastasiia Foley, ARRT, RT (R)(N) Ht: 5 ft 8 in Wt: 240 lbs HR: 68 bpm BP: 117/74 mmHg BSA: 2.21 m2 BMI: 36.4 History: Chest pain, SOB, Palpitations, Syncope, Fatigue, HTN, CAD, High cholesterol, Tobacco use, Family history Procedure: Patient received a 0.4 mg of intravenous Lexiscan, resting heart rate 68 bpm, resting blood pressure 117/74 mmHg, with Lexiscan maximum heart rate achived was 101 bpm which is % of the maximum predicted heart rate and blood pressure was 102/66 mmHg. With Lexiscan, patient denied any complaint of chest pain. Cardiac Stress and Resting SPECT Images: Cardiac Stress and Resting SPECT images were obtained using technetium 99m Myoview 32.0 mCi stress and 10.82 mCi at rest. Patient unable to do prone images due to history of stroke. EF low at 44% Septal dyskinesia and inferior wall hypokinesia Small fixed defect in the proximal septum suggesting an area of infarction Small reversible defect in the apex suggesting an area of ischemia Conclusion: EF low at 44% Septal dyskinesia and inferior wall hypokinesia Small fixed defect in the proximal septum suggesting an area of infarction Small reversible defect in the apex suggesting an area of ischemia Electronically signed by : Deacon Salamanca MD 10/10/2020 15:21:43
--- NOTE | 2020-10-10 07:49 | HMH.CNCARD ---
History of Present Illness Consult date: 10/10/20 Requesting physician: Leoncio Olivarez Consult reason: chest pain Chief complaint: chest pain Additional Medical History:: 1. CAD with prior CO and TWYLA at least 5 yrs ago at outside facility. A. NSTEMI, 08/2020, subsequent TWYLA to LAD, Cx and Ramus. Mild to mod disease of dominant RCA left for medical therapy. 2. History of CVA with left sided weakness 3. Hypertension A. Echo, 2020, LV function read as normal. No significant valve disease. 4. Hyperlipidemia on statin therapy A. LDL, less than 30 with triglycerides 350 on 08/18/2020 History of present illness: 55-year-old white male resident of [facility] admitted to the hospital for complaint of chest pain, vomiting, diarrhea, shortness of breath that began prior to admission. Patient was cleaning his room when symptoms of anterior chest pain developed with radiation to the back, up into the neck and left jaw along with left arm discomfort. Patient was given nitroglycerin in route with minimal improvement. He does have a nitroglycerin paste on at this time but still complains of some left lower rib cage left upper abdominal discomfort. He relates episodes of diarrhea over the last week without any noted blood in the stools. Patient recently had three-vessel coronary stenting in relation to non-ST elevation CO in August 2020 with subsequent hospitalization several days later for recurrent chest pain with negative troponins. Patient does have chronic back pain for which he takes narcotics on a daily basis. His activity is limited due to prior stroke with left-sided weakness. Troponins overnight have returned normal x3 and EKG is sinus rhythm with prior anterior infarct but no acute ST segment changes. Cardiology consulted for evaluation recommendations. [facility] History Medical History: Reports:: Atherosclerotic Heart Disease, Coronary Artery Disease, Cerebrovascular Accident, Hyperlipidemia, Hypertension, Myocardial Infarction, Renal Disease, Renal Insufficiency Denies:: Cancer, Diabetes Mellitus Type 1, Diabetes Mellitus Type 2, MRSA *Have you ever received a pneumonia vaccine?: Yes *Have you received a flu vaccine this season?: Yes Other Surgeries: Yes: Cardiac Catheterization, Coronary Stent (x4 or x5) Amputation: No Fractures: No - *Social History Last grade of school completed: High school graduate Smoking Status: Current every day smoker Tobacco Type: cigarettes # Packs/Day (cigarettes): 1 Alcohol Intake: never *Occupational Status:: disabled Housing: apartment Household Members: other *Travel in the last 8 weeks: None Family Hx:: No significant family history Meds Home Medications Medication Instructions Recorded Confirmed Type ARIPiprazole [Abilify] 5 mg PO DAILY 06/09/20 10/09/20 History Atorvastatin Calcium [Lipitor 80mg 80 mg PO DAILY 06/09/20 10/09/20 History Tablet*] Dicyclomine HCl 20 mg PO TID 06/09/20 10/09/20 History Duloxetine HCl [Cymbalta] 30 mg PO BID 06/09/20 10/09/20 History Famotidine [Acid Controller] 20 mg PO BID 06/09/20 10/09/20 History Melatonin 5 mg PO HS 06/09/20 10/09/20 History Montelukast Sodium 10 mg PO HS 06/09/20 10/09/20 History Ropinirole HCl 4 mg PO HS 06/09/20 10/09/20 History Tamsulosin HCl 0.4 mg PO DAILY 06/09/20 10/09/20 History Tiotropium [place] [Spiriva 1 puff IH DAILY 06/09/20 10/09/20 History Respimat] Tizanidine HCl [Tizanidine HCl 2 mg PO BID 06/09/20 10/09/20 History 2mg] carBAMazepine [Carbamazepine ER] 200 mg PO BID 06/09/20 10/09/20 History polyethylene glycoL 3350 [Miralax 17 gm PO DAILY 06/09/20 10/09/20 History Powder] Aspirin [Aspirin 81mg chewable 81 mg PO DAILY 08/18/20 10/09/20 History tab] Ergocalciferol (Vitamin D2) 50,000 unit PO TU 08/18/20 10/09/20 History [Vitamin D2] Lactobacillus Acidophilus/Pect 1 each PO BID 08/18/20 10/09/20 History [Acidophilus-Pectin Tab Chew] [place]-3 Fatty Acids/Fish Oil [Fish 2 each PO DAILY
--- NOTE | 2020-10-10 09:04 | HMH.PHAVTE ---
[facility] Pharmacy VTE Monitoring - Patient Demographics Admission date: 10/09/20 Report Date: 10/10/20 Time: 09:04 Allergies/Adverse Reactions: Patient Allergies trazodone Allergy (Verified 08/29/20 10:14) Height: 1.73 m Weight: 104.099 kg Patient Problems: Current Active Problems Vomiting and diarrhea (Acute) CAD (coronary artery disease) (Acute) Chest pain (Acute) Hypertension (Chronic) Coronary artery disease (Chronic) History of coronary artery stent placement (Chronic) Hyperlipidemia (Chronic) Tobacco user (Chronic) - VTE Risk Labs: VTE Related Lab Results Hgb 16.1 g/dL (14.1-18.0) 10/10/20 05:53 Hct 48.2 % (42.0-52.0) 10/10/20 05:53 Plt Count 178 K/mm3 (142-424) 10/10/20 05:53 BUN 15 mg/dl (9-20) 10/10/20 05:53 Creatinine 1.00 mg/dl (0.66-1.25) 10/10/20 05:53 Estimated Creat Clear 126 mL/min (50-200) 10/10/20 05:53 - Prophylaxis VTE Prophylaxis Ordered?: Yes Types of VTE Prophylaxis: TEDS Knee High
--- NOTE | 2020-10-10 13:56 | HMH.PHAINT ---
MEDICATION RECONCILIATION COMPLETE USING MAR FROM [facility].
--- NOTE | 2020-10-10 15:51 | HMH.HP ---
*Admission Date: 10/09/20 *Chief complaint: chest pain *History of present illness: 55-year-old male resident of [facility] presented to ed with c/o chest pain,vomiting,diarrhea, soa and epigastric pain. Patient states he was cleaning his room when symptoms of anterior chest pain developed with radiation to the back, up into the neck and left jaw along with left arm discomfort. Patient was given nitroglycerin in route with minimal improvement. Patient recently had three-vessel coronary stenting in relation to non-ST elevation [place] in August 2020 with subsequent hospitalization several days later for recurrent chest pain with negative troponins. Pt admitted for cardiology consult and monitoring of labs. [facility] History I have reviewed the patient's past medical history: Yes Medical History: Reports:: Atherosclerotic Heart Disease, Coronary Artery Disease, Cerebrovascular Accident, Hyperlipidemia, Hypertension, Myocardial Infarction, Renal Disease, Renal Insufficiency Denies:: Cancer, Diabetes Mellitus Type 1, Diabetes Mellitus Type 2, MRSA *Have you ever received a pneumonia vaccine?: Yes *Have you received a flu vaccine this season?: Yes Other Surgeries: Yes: Cardiac Catheterization, Coronary Stent (x4 or x5) Amputation: No Fractures: No - *Social History Last grade of school completed: High school graduate Smoking Status: Current every day smoker Tobacco Type: cigarettes # Packs/Day (cigarettes): 1 Alcohol Intake: never *Occupational Status:: disabled Housing: apartment Household Members: other *Travel in the last 8 weeks: None Family Hx:: No significant family history Review of Systems - Review of Systems Review of systems:: pertinent systems reviewed and negative unless documented below - Constitutional Denies body ache(s) - Eyes Denies blurry vision - ENT Denies bleeding gums - *Cardiovascular Reports chest pain, Reports chest pain at rest, Reports chest pain with activity, Reports shortness of breath with activity - *Respiratory Denies change in phlegm color, Denies cough - *Gastrointestinal Reports abdominal pain, Reports belching, Reports loose stools, Reports nausea, Reports vomiting - *Genitourinary Denies difficulty urinating - *Musculoskeletal Denies abnormal walking - Integumentary/Breasts Denies sores - *Neurologic Denies abnormal hearing, Denies dizziness - Psychiatric Denies lack of enjoyment - Endocrine Denies excessive sweating - Hematologic/Lymphatic Denies easy bruising - Allergic/Immunologic Denies itchy eyes Meds Home Medications Medication Instructions Recorded Confirmed Type ARIPiprazole [Abilify] 5 mg PO DAILY 06/09/20 10/10/20 History Atorvastatin Calcium [Lipitor 80mg 80 mg PO DAILY 06/09/20 10/10/20 History Tablet*] Dicyclomine HCl 20 mg PO TID 06/09/20 10/10/20 History Duloxetine HCl [Cymbalta] 30 mg PO BID 06/09/20 10/10/20 History Famotidine [Acid Controller] 20 mg PO BID 06/09/20 10/10/20 History Melatonin 5 mg PO HS 06/09/20 10/10/20 History Montelukast Sodium 10 mg PO HS 06/09/20 10/10/20 History Ropinirole HCl 4 mg PO HS 06/09/20 10/10/20 History Tamsulosin HCl 0.4 mg PO DAILY 06/09/20 10/10/20 History Tiotropium [place] [Spiriva 1 puff IH DAILY 06/09/20 10/10/20 History Respimat] Tizanidine HCl [Tizanidine HCl 2 mg PO BID 06/09/20 10/10/20 History 2mg] polyethylene glycoL 3350 [Miralax 17 gm PO DAILY 06/09/20 10/10/20 History Powder] Aspirin [Aspirin 81mg chewable 81 mg PO DAILY 08/18/20 10/10/20 History tab] Ergocalciferol (Vitamin D2) 50,000 unit PO TU 08/18/20 10/09/20 History [Vitamin D2] Lactobacillus Acidophilus/Pect 1 each PO BID 08/18/20 10/10/20 History [Acidophilus-Pectin Tab Chew] [place]-3 Fatty Acids/Fish Oil [Fish 2 cap PO DAILY 08/18/20 10/10/20 History Oil 1,000 mg Capsule] Ropinirole HCl 1 mg PO HSP PRN 08/18/20 10/09/20 History Clopidogrel Bisulfate [Plavix 75mg 75 mg PO DAILY 08/20/20 10/10/20 History
--- NOTE | 2020-10-10 17:44 | PC.NURSE ---
PT IS RESTING IN BED. TOLERATED SITTING UP IN THE CHAIR FOR A FEW HOURS THIS AFTERNOON. PT AMBULATES TO THE BATHROOM. MEDICATED PER MAY FOR BACK DISCOMFORT. STRESS TEST RESULTS WERE GIVEN TO ALAINA ASCENCIO OVER THE PHONE. ALAINA ASCENCIO ORDERED FOR PT TO BE NPO AFTER MIDNIGHT AND THE PLAN WILL BE FOR TO CATH HIM IN THE MORNING. PT HAS NOT COMPLAINED OF ANY CP OR SOA THIS SHIFT. PT IS EATING AND DRINKING WELL. LT SIDED WEAKNESS. WILL CONTINUE TO MONITOR.
[2020-10-11] VITALS (18 sets, daily range): BP systolic 123–180; BP diastolic 55–110; PULSE 50–80; RESP 16–20; TEMP 36.6–36.7; O2SAT 93–99; BMI 34.6
--- NOTE | 2020-10-11 | IR_ITS ---
APPROVED REPORT Patient Location: Inpatient [facility] Ambassador: DEAN Saldivar RT (R) PROCEDURES Left heart catheterization Left ventriculogram Selective coronary angiogram INDICATION Chest pain, History of multivessel coronary disease, High risk abnormal Myoview Informed consent was obtained prior to the procedure. COMPLICATIONS NONE Estimated Blood Loss: LESS THAN 10 ML TECHNIQUE One percent lidocaine used to anesthetize the right anterior aspect of the wrist. The right radial artery was accessed via the Seldinger technique. A 6 [place] sheath was placed in the right radial artery. 2.5 mg of verapamil, 800 mcg of nitroglycerin, 1mg Lidocaine and 5000 U Heparin were given through the arterial sheath. The trap catheter was also used to perform left heart catheterization, left ventriculogram and selective coronary angiogram. At the end of the procedure the sheath was removed good hemostasis was achieved using Traclet band, patient was transferred to the postop holding area in stable condition. ANGIOGRAPHIC RESULTS The left main artery Normal The left anterior descending artery Has a stent in the ostial proximal segment which is widely patent free of in-stent restenosis with excellent proximal distal transitioning. The remaining LAD has mid vessel 20% stenoses The circumflex artery Is nondominant gives rise to a moderate to large ramus intermedius which has an ostial proximal 10 to 20% stenosis mid vessel 20% stenoses. The circumflex artery itself has a stent in the proximal and mid segment which is widely patent free of in-stent restenosis with excellent proximal distal transitioning. The right coronary artery Is a dominant vessel and has proximal 10 to 20% stenosis mid vessel 30% stenosis distal 30 to 40% stenoses. The posterior descending artery has an ostial 50% stenosis and is 3 mm in diameter. The posterior lateral branch is moderate in size and has mid vessel 50% stenosed The CARDOSO ventriculogram reveals Preserved at 50% The left ventricular end-diastolic pressure 10 mmHg IMPRESSION Adequate coronary revascularization as described above Preserved ejection fraction Normal left ventricular NaSal pressure It is unlikely patient's chest pain stemmed from an ischemic myocardial process. Suspect noncardiac possibly GI etiologies for chest pain PLAN 1. Continue standard therapy for ischemic heart disease 2. Standard risk factor modification 3. Avoidance of tobacco products 4. Evaluation for GI etiologies Electronically signed by : Scott Ayala, 10/11/2020 13:30:35
--- NOTE | 2020-10-11 01:42 | PC.NURSE ---
He is A&Ox3. He is NPO at this time. He denies chest pain and SOA. He received PRN medication for back and knee pain. His LUE is flaccid. He ambulates independently with a straight cane. He reports his last BM was on 10/10/20.
[2020-10-11 05:48] LABS: Basophils # 0.1 K/mm3 (0-0.2); Basophils % 0.7 % (0.1-2.0); Eosinophils # 0.3 K/mm3 (0.0-0.4); Eosinophils % 3.6 % (0.1-12.0); Hematocrit 46.3 % (42.0-52.0); Hemoglobin 15.3 g/dL (14.1-18.0); Lymphocytes # 2.1 K/mm3 (0.7-4.5); Lymphocytes % 27.6 % (10-50); Mean Corpuscular Hemoglobin 28.5 pg (27.0-31.2); Mean Corpuscular Volume 86.3 fl (80-94); Mean Platelet Volume 7.7 fl (7.4-10.4); Monocytes # 0.4 K/mm3 (0.1-1.0); Monocytes % 5.8 % (1.7-9.3); Neutrophils # 4.7 K/mm3 (1.8-7.8); Neutrophils % 62.3 % (37.0-80.0); Platelet Count 161 K/mm3 (142-424); Red Blood Count 5.36 M/mm3 (4.60-6.20); Red Cell Distribution Width 14.3 % (11.5-17.5); White Blood Count 7.5 K/mm3 (4.8-10.8)
--- NOTE | 2020-10-11 06:00 | US_ITS ---
PROCEDURE: US GALLBLADDER CLINICAL INDICATION: epigatric pain COMPARISON: No exams were available for comparison FINDINGS: Pancreas: Unremarkable/Not well seen Liver: Unremarkable. There is appropriate direction of blood flow within a non dilated portal vein. Right kidney: 1.7 cm right renal cyst superiorly Gallbladder: No stones are evident. There is no gallbladder wall thickening. Common duct is normal in diameter. IMPRESSION: Negative gallbladder ultrasound. No stones evident. Dictated by: Deacon Salamanca MD 10/11/2020 10:40 Deacon Salamanca MD in [place] 10/11/2020 10:40
[2020-10-11 06:02] LABS: Chloride 110 mmol/L (98-107); Potassium 4.1 mmoL/L (3.5-5.1); Sodium 141 mmol/L (136-145)
[2020-10-11 06:05] LABS: Blood Urea Nitrogen 23 mg/dl (9-20); Creatinine Clearance Estimated 114 mL/min (50-200); Estimated Glomerular Filt Rate 70 ml/min (>60); GFR (African American) 85 ML/MIN (>60)
[2020-10-11 06:06] LABS: Anion Gap 10.1 mEq/L (5-15); Calcium 8.9 mg/dl (8.4-10.2); Carbon Dioxide 25 mmol/L (22.0-30.0); Glucose 87 mg/dl (74-100)
--- NOTE | 2020-10-11 07:48 | HMH.PNCARD ---
Subjective Date: 10/11/20 Time: 07:48 Principal diagnosis: Chest pain Interval history: 55-year-old white male in bed in no acute distress. Denies any chest pain overnight. Results of stress test show evidence of apical ischemia with ejection fraction of 44% and evidence of myocardial scarring in the septum. Discussed the results with the patient and recommendation for left heart catheterization. Patient agrees to proceed in this fashion. Exam Vital signs and Labs for Last 24 Hours: Temp Pulse Resp BP Pulse Ox 97.8 F 71 16 123/86 98 10/11/20 04:00 10/11/20 04:00 10/11/20 04:00 10/11/20 04:00 10/11/20 04:00 Laboratory Results - last 24 hr 10/11/20 05:14: WBC 7.5, RBC 5.36, Hgb 15.3, Hct 46.3, MCV 86.3, MCH 28.5, MCHC 33.0, RDW 14.3, Plt Count 161, MPV 7.7, Neut % (Auto) 62.3, Lymph % (Auto) 27.6, [place] % (Auto) 5.8, Eos % (Auto) 3.6, Baso % (Auto) 0.7, Neut # (Auto) 4.7, Lymph # (Auto) 2.1, [place] # (Auto) 0.4, Eos # (Auto) 0.3, Baso # (Auto) 0.1 10/11/20 05:14: Sodium 141, Potassium 4.1, Chloride 110 H, Carbon Dioxide 25, Anion Gap 10.1, BUN 23 H D, Creatinine 1.10, Estimated Creat Clear 114, Estimated GFR 70, Est GFR ( Amer) 85, Glucose 87, Calcium 8.9 I & O for Last 24 hours: Intake & Output 10/08/20 10/09/20 10/10/20 10/11/20 11:59 11:59 11:59 11:59 Intake Total 370 / 370 Output Total 0 / 0 Balance 370 / 370 Weight 229 lb 8 oz 228 lb 6 oz - Constitutional no acute distress - *Routine HEENT Exam Head: Present: normocephalic Eye: Present: EOMI, PERRL ENT: Present: mucous membranes moist - *Routine Neck Exam Present: supple. Absent: lymphadenopathy - *Routine Respiratory Exam Present: CTA bilaterally - *Routine Cardiovascular Exam Present: RRR - *Routine Abdominal Exam Present: soft, normoactive bowel sounds. Absent: tenderness - *Routine Extremities Exam Absent: cyanosis, clubbing, edema - *Routine Skin Exam Present: warm. Absent: rash - *Routine Neurological Exam Present: alert, oriented X3 Progress Note: A&P (1) Chest pain Status: Acute (2) CAD (coronary artery disease) Status: Acute (3) Coronary artery disease Status: Chronic (4) History of coronary artery stent placement Status: Chronic (5) Hyperlipidemia Status: Chronic (6) Hypertension Status: Chronic (7) Tobacco user Status: Chronic (8) Vomiting and diarrhea Status: Acute (9) Abnormal cardiovascular stress test Status: Acute Assessment and Plan for All Diagnoses:: 1. Known coronary artery disease with three-vessel stenting post non-ST elevation [place], 08/2020. Patient is on 3 antianginal medications with his second admission for chest pain since his stenting. Stress test shows area of ischemia in the apex. Recommend left heart catheterization. [facility] Pre-cath Criteria Clinical evaluation and indication for coronary angiography: know CAD, new onset angina <= 2 months Patient is describing chest pain symtom as:: typical angina Clinical risk factors:: CAD Hypertension Hyperlipidemia Tobacco use How many antianginals is the patient taking?: 3 Patient is taking:: beta rebeca, Long acting nitrate, Ranolozine Myoview stress test imaging:: Apical ischemia EF 44% Risks and benefits:: We will plan to proceed with LHC/coronary angiography with right radial access. The patient has been educated on the risks and benefits of proceeding with LHC/coronary angiography with right radial access. The patient verbalized understanding and is agreeable in proceeding with the procedure. SCAI (diagnostic catheter AUC results):: A7
--- NOTE | 2020-10-11 12:40 | HMH.ACPN2 ---
Internal Medicine - PN: Subj *Date: 10/11/20 *Time: 12:40 Exam Vital signs and Labs for Last 24 Hours: Temp Pulse Resp BP Pulse Ox 97.8 F 68 16 126/78 94 L 10/11/20 08:00 10/11/20 08:00 10/11/20 08:00 10/11/20 08:00 10/11/20 08:00 Laboratory Results - last 24 hr 10/11/20 05:14: WBC 7.5, RBC 5.36, Hgb 15.3, Hct 46.3, MCV 86.3, MCH 28.5, MCHC 33.0, RDW 14.3, Plt Count 161, MPV 7.7, Neut % (Auto) 62.3, Lymph % (Auto) 27.6, [place] % (Auto) 5.8, Eos % (Auto) 3.6, Baso % (Auto) 0.7, Neut # (Auto) 4.7, Lymph # (Auto) 2.1, [place] # (Auto) 0.4, Eos # (Auto) 0.3, Baso # (Auto) 0.1 10/11/20 05:14: Sodium 141, Potassium 4.1, Chloride 110 H, Carbon Dioxide 25, Anion Gap 10.1, BUN 23 H D, Creatinine 1.10, Estimated Creat Clear 114, Estimated GFR 70, Est GFR ( Amer) 85, Glucose 87, Calcium 8.9 I & O for Last 24 hours: Intake & Output 10/08/20 10/09/20 10/10/20 10/11/20 23:59 23:59 23:59 23:59 Intake Total 360 / 360 130 / 130 Output Total 0 / 0 Balance 360 / 360 130 / 130 Weight 228 lb 14.4 oz 229 lb 8 oz 228 lb 6 oz Assessment and Plan (1) Chest pain Status: Acute Category: Medical Code(s): R07.9 - Chest pain, unspecified (2) CAD (coronary artery disease) Status: Acute Category: Medical Code(s): I25.10 - Atherosclerotic heart disease of [place] coronary artery without angina pectoris (3) Coronary artery disease Status: Chronic Qualifiers: Coronary Disease-Associated Artery/Lesion type: [place] artery [place] vs. transplanted heart: [place] heart Associated angina: with unstable angina Qualified Code(s): I25.110 - Atherosclerotic heart disease of [place] coronary artery with unstable angina pectoris Category: Medical Code(s): I25.10 - Atherosclerotic heart disease of [place] coronary artery without angina pectoris (4) History of coronary artery stent placement Status: Chronic Category: Surgical Code(s): Z95.5 - Presence of coronary angioplasty implant and graft (5) Hyperlipidemia Status: Chronic Qualifiers: Hyperlipidemia type: mixed hyperlipidemia Qualified Code(s): E78.2 - Mixed hyperlipidemia Category: Medical Code(s): E78.5 - Hyperlipidemia, unspecified (6) Hypertension Status: Chronic Qualifiers: Hypertension type: essential hypertension Category: Medical Code(s): I10 - Essential (primary) hypertension (7) Tobacco user Status: Chronic Category: Social Hx Code(s): Z72.0 - Tobacco use (8) Vomiting and diarrhea Status: Acute Category: Medical Code(s): R11.10 - Vomiting, unspecified; R19.7 - Diarrhea, unspecified (9) Abnormal cardiovascular stress test Status: Acute Category: Medical Code(s): R94.39 - Abnormal result of other cardiovascular function study
--- NOTE | 2020-10-11 15:53 | HMH.DCSUM ---
General - General Admission date:: 10/09/20 Discharge date: 10/11/20 HPI HPI: 55-year-old male resident of [facility] presented to ed with c/o chest pain,vomiting,diarrhea, soa and epigastric pain. Patient states he was cleaning his room when symptoms of anterior chest pain developed with radiation to the back, up into the neck and left jaw along with left arm discomfort. Patient was given nitroglycerin in route with minimal improvement. Patient recently had three-vessel coronary stenting in relation to non-ST elevation [place] in August 2020 with subsequent hospitalization several days later for recurrent chest pain with negative troponins. Pt admitted for cardiology consult and monitoring of labs. Hospital Course Hospital Course: 55[facility] c/o chest pain,vomiting,diarrhea, soa and epigastric pain. Patient states he was cleaning his room when symptoms of anterior chest pain developed with radiation to the back, up into the neck and left jaw along with left arm discomfort. Patient was given nitroglycerin in route with minimal improvement. Patient recently had three-vessel coronary stenting in relation to non-ST elevation [place] in August 2020 with subsequent hospitalization several days later for recurrent chest pain with negative troponins. Pt admitted for cardiology consult and monitoring of labs. 10/09/20 CXR revealed no acute findings 10/11/20 GB US: FINDINGS: Pancreas: Unremarkable/Not well seen Liver: Unremarkable. There is appropriate direction of blood flow within a non dilated portal vein. Right kidney: 1.7 cm right renal cyst superiorly Gallbladder: No stones are evident. There is no gallbladder wall thickening. Common duct is normal in diameter. IMPRESSION: Negative gallbladder ultrasound. No stones evident. Dictated by: Deacon Salamanca MD [facility] results: ANGIOGRAPHIC RESULTS The left main artery Normal The left anterior descending artery Has a stent in the ostial proximal segment which is widely patent free of in-stent restenosis with excellent proximal distal transitioning. The remaining LAD has mid vessel 20% stenoses The circumflex artery Is nondominant gives rise to a moderate to large ramus intermedius which has an ostial proximal 10 to 20% stenosis mid vessel 20% stenoses. The circumflex artery itself has a stent in the proximal and mid segment which is widely patent free of in-stent restenosis with excellent proximal distal transitioning. The right coronary artery Is a dominant vessel and has proximal 10 to 20% stenosis mid vessel 30% stenosis distal 30 to 40% stenoses. The posterior descending artery has an ostial 50% stenosis and is 3 mm in diameter. The posterior lateral branch is moderate in size and has mid vessel 50% stenosed The CARDOSO ventriculogram reveals Preserved at 50% The left ventricular end-diastolic pressure 10 mmHg IMPRESSION Adequate coronary revascularization as described above Preserved ejection fraction Normal left ventricular NaSal pressure It is unlikely patient's chest pain stemmed from an ischemic myocardial process. Suspect noncardiac possibly GI etiologies for chest pain PLAN 1. Continue standard therapy for ischemic heart disease 2. Standard risk factor modification 3. Avoidance of tobacco products 4. Evaluation for GI etiologies Electronically signed by : Scott Ayala, 10/11/2020 13:30:35 CP likely non-cardiac in origin. Recommend adding PPI therapy in the form of pantoprazole 40 mg daily. Continue current meds: Aspirin 81 mg daily Atorvastatin 80 mg daily Carvedilol 25 mg twice daily Plavix 75 mg daily Irbesartan 150 mg daily Isosorbide 30 mg daily Ranexa 500 mg twice daily Patient is stable from a cardiac standpoint for discharge at the discretion of PCP. Follow-up in our office in 2 weeks. 55-year-old male patient sitting up in bed resting quietly he denies any respiratory dist
== END 2020-10-11 19:46 | disposition home or self-care (01) ==
LOC: ER 20:10 → 2ND 22:12
PROVIDERS: Internal Medicine; Nurse Practitioner Family; Admitting Provider Family Medicine; Emergency Provider Internal Medicine; PCP Emergency Medicine; Visit Provider Family Medicine
DX: R07.9 Chest pain, unspecified (principal); Z20.822 Contact with and (suspected) exposure to COVID-19; Z79.02 Long term (current) use of antithrombotics/antiplatelets; Z79.899 Other long term (current) drug therapy; I25.10 Atherosclerotic heart disease of native coronary artery without angina pectoris; R94.39 Abnormal result of other cardiovascular function study; F17.210 Nicotine dependence, cigarettes, uncomplicated; Z95.5 Presence of coronary angioplasty implant and graft; I25.2 Old myocardial infarction
CPT/HCPCS: 36415; 71045; 76705; 78452; 80048; 80053; 84484; 85025; 93005; 93017; 93458; 96375; 99152; 99284; A9502; C1725; C1769; G0378; J1644; J2405; J2785; Q9967; U0003

== ENCOUNTER → 2020-11-30 09:05 | Emergency (ER) | payer OTHER, SELFPAY ==
[2020-11-30 08:29] VITALS: BP 157/106; PULSE 86; RESP 18; TEMP 36.8; O2SAT 100; BMI 33.4
--- NOTE | 2020-11-30 08:38 | PC.NURSE ---
[facility] CALLED FOR TRANSPORT BACK, DISCHARGE ORDERED.
--- NOTE | 2020-11-30 08:40 | HMH.EDGENADL ---
ED Disposition Clinical Impression: Skin tag of perianal region Disposition: Xfer Inpatient Rehab Fac Condition on Discharge: Good Instructions: DI for Rash Referrals: Thong Hinds MD [Staff Physician] - - Critical Care Critical Care Time: No Attestation: On , the high probability of a clinically significant, sudden or life threatening deterioration of the following system(s) required my full and direct attention, intervention and personal management. The time I documented below is in addition to time spent performing reported procedures but includes the following listed in this critical care notation. Medical Decision Making - Medical Records Medical records reviewed: Yes: I reviewed the patient's medical records. - [place] Inquiry Pt receiving controlled substance: No Vital Signs: 11/30/20 08:29 Temperature 98.2 F Temperature Source Oral Pulse Rate [Right] 86 Respiratory Rate 18 Blood Pressure [Right Arm] 157/106 H Blood Pressure Mean [Right Arm] 123 02 Sat by Pulse Oximetry 100 Oxygen Delivery Method Room Air Medical Decision Narrative: 55-year-old male presented to the emergency department with some bleeding. The patient has evidence of a skin tag on the left buttocks. There is a scab in place. He likely scratched this in a cause of bleeding. There is no active bleeding. There is no evidence of hemorrhoid thrombosis. Patient will continue direct pressure dressing. Given strict return precautions. Verbalized understanding. General Adult HPI - General Chief complaint: Skin/Abscess/Foreign Body Stated complaint: BUMP ON BUTTOX Time Seen by Provider: 11/30/20 08:40 Mode of Arrival: EMS Limitations: No Limitations Description of Symptoms (Recalled from ER Triage Doc. by RN): PT VIA [facility] FROM [facility]. FOR BUMP ON BUTTOCKS, SCRATCHED IT LAST NIGHT & IT BLED A LITTLE. - History of Present Illness HPI narrative: 55-year-old male sent to the emergency department for evaluation. Patient states that last night he felt a bump on his backside. He scratched it and it started bleeding. He got concerned about this and notify retirement staff. They sent to the emergency department for evaluation. Patient states that he felt a small bump. Feeling it was connected to his buttocks. He has had some minimal bleeding since he scratched it. Denies any other injuries. No diarrhea. No abdominal pain or vomiting. No fevers or chills. Headache or change in vision. No focal weakness. - Related Data Home Medications Medication Instructions Recorded Confirmed ARIPiprazole [Abilify] 5 mg PO DAILY 06/09/20 10/10/20 Atorvastatin Calcium [Lipitor 80mg 80 mg PO DAILY 06/09/20 10/10/20 Tablet*] Dicyclomine HCl 20 mg PO TID 06/09/20 10/10/20 Duloxetine HCl [Cymbalta] 30 mg PO BID 06/09/20 10/10/20 Famotidine [Acid Controller] 20 mg PO BID 06/09/20 10/10/20 Melatonin 5 mg PO HS 06/09/20 10/10/20 Montelukast Sodium 10 mg PO HS 06/09/20 10/10/20 Ropinirole HCl 4 mg PO HS 06/09/20 10/10/20 Tamsulosin HCl 0.4 mg PO DAILY 06/09/20 10/10/20 Tiotropium [place] [Spiriva 1 puff IH DAILY 06/09/20 10/10/20 Respimat] Tizanidine HCl [Tizanidine HCl 2 mg PO BID 06/09/20 10/10/20 2mg] polyethylene glycoL 3350 [Miralax 17 gm PO DAILY 06/09/20 10/10/20 Powder] Aspirin [Aspirin 81mg chewable 81 mg PO DAILY 08/18/20 10/10/20 tab] Ergocalciferol (Vitamin D2) 50,000 unit PO TU 08/18/20 10/09/20 [Vitamin D2] Lactobacillus Acidophilus/Pect 1 each PO BID 08/18/20 10/10/20 [Acidophilus-Pectin Tab Chew] [place]-3 Fatty Acids/Fish Oil [Fish 2 cap PO DAILY 08/18/20 10/10/20 Oil 1,000 mg Capsule] Ropinirole HCl 1 mg PO HSP PRN 08/18/20 10/09/20 Clopidogrel Bisulfate [Plavix 75mg 75 mg PO DAILY 08/20/20 10/10/20 Tab] Irbesartan [Avapro 150mg 150 mg PO DAILY 08/20/20 10/10/20 tablet] Isosorbide Mononitrate [Imdur 30mg 30 mg PO DAILY 08/20/20 10/10/20 ER tablet] Ranolazine
[2020-11-30 09:00] VITALS: BP 157/106; PULSE 86; RESP 18; TEMP 36.8; O2SAT 100
== END | disposition home or self-care (01) ==
LOC: ER 09:25
PROVIDERS: Emergency Provider Emergency Medicine; PCP Emergency Medicine
DX: K64.4 Residual hemorrhoidal skin tags (principal); I10 Essential (primary) hypertension; E78.5 Hyperlipidemia, unspecified; I25.2 Old myocardial infarction; I25.10 Atherosclerotic heart disease of native coronary artery without angina pectoris; F17.210 Nicotine dependence, cigarettes, uncomplicated; Z79.899 Other long term (current) drug therapy
CPT/HCPCS: 99281